=== PATIENT | male | born 1950 | race Caucasian/White ===

== ENCOUNTER 2021-04-28 20:44 | Inpatient (IN) ==
[2021-04-28] MEDS ORDERED: IOPAMIDOL 100 ML BOTTLE IV ONE (20:45)
--- NOTE | 2021-04-28 21:03 | Emergency Department Note ---
HPI General Chief complaint: Abdominal Pain Stated complaint: Abd Pain Time Seen by Provider: 04/28/21 21:03 Source: patient Mode of arrival: ambulatory Limitations: no limitations History of Present Illness HPI Narrative: 70-year-old male with past medical history of hypertension, BPH, and pulmonary sarcoidosis presenting with abdominal pain. Patient states yesterday he developed right flank pain and was evaluated at an emergency department in [facility]. He had a CT scan of his abdomen which reportedly showed kidney stones and possible urinary infection. He was given a dose of IV Levaquin and discharged on Levaquin. He comes in today because he is now having right lower quadrant abdominal pain that does not radiate. No nausea, vomiting, or diarrhea. Denies any hematuria. No prior abdominal surgeries. Patient self caths secondary to his history of BPH. His urologist is Dr. Kramer. No fever or chills. Related Data Home Medications Medication Instructions Recorded Confirmed allopurinol 300 mg tablet 300 mg PO QDAY 09/24/16 04/04/18 indapamide 2.5 mg tablet 2.5 mg PO QAM 09/24/16 04/04/18 potassium citrate 10 mEq (1,080 10 meq PO QDAY tab 09/24/16 04/04/18 mg) tablet,extended release tamsulosin 0.4 mg capsule (Flomax) 0.8 mg PO QDAY cap 09/24/16 04/04/18 aspirin 81 mg tablet,delayed 81 mg PO QDAY 04/04/18 04/04/18 release (Adult Low Dose Aspirin) bethanechol chloride 10 mg tablet tab PO 04/29/21 Allergies Allergy/AdvReac Type Severity Reaction Status Date / Time codeine AdvReac Intermediate sleepiness Verified 04/29/21 00:30 Review of Systems ROS ROS Narrative: Narrative: Constitutional: Denies fever or chills ENT ED: Denies throat pain Cardiovascular: Denies chest pain or palpitations Respiratory: Denies shortness of breath or cough Gastrointestinal: Reports abdominal pain; Denies nausea, vomiting, diarrhea or melena Genitourinary: Denies hematuria Musculoskeletal: Denies back pain or joint swelling Integumentary: Denies rash Neurological: Denies headache Psychiatric: Denies anxiety Endocrine: Denies fatigue Hematological/Lymphatic: Denies easy bleeding or easy bruising [facility] Narrative Patient History Narrative: Narrative: Medical/Surgical/Family History All Active Problems (Updated 04/29/21 @ 00:13 by Ryley White MD) Diverticulitis of colon with perforation (Acute) 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) Elevated blood pressure reading without diagnosis of hypertension (Chronic) Hematuria (Chronic) Hypertension (Chronic) Acute bronchitis (Chronic) Incomplete bladder emptying (Chronic) BPH NOS w/o ur obs/LUTS (Chronic) Nephrolithiasis (Chronic) Oral soft tissue disease (Chronic) Neoplasm of uncertain behavior of skin (Chronic) Shoulder joint pain (Chronic) Urinary calculi (Chronic) BPH w urinary obs/LUTS (Chronic) Medical History (Updated 04/29/21 @ 00:13 by Ryley White MD) Acute bronchitis BPH NOS w/o ur obs/LUTS BPH w urinary obs/LUTS Elevated blood pressure reading without diagnosis of hypertension Hearing loss (03/27/13) Hematuria Hypertension Incomplete bladder emptying Mediastinal adenopathy asymptomatic Neoplasm of uncertain behavior of skin Nephrolithiasis Non-caseating granuloma Oral soft tissue disease Pulmonary sarcoidosis Shoulder joint pain Urinary calculi Surgical History History of colonoscopy (02/23/11) Family History Father Glaucoma Social History Smoking Status: Never smoker Alcohol Intake Frequency: holiday/special occasion only Exam Narrative Narrative: Narrative: General Limitations: no limitations General appearance: Present alert and in no apparent distress Head Head: Present atraumatic and normocephalic Eye Eye: Present normal appearance and EOMI; Absent scleral icterus or conjunctival injection ENT ENT: Present mucous membranes moist Neck Neck: Present normal inspection, full ROM and trachea midline Chest Chest: Present symmetric chest wall rise Respiratory Respiratory: Present normal lung sounds bilaterally; Absent respiratory distress, wheezes, stridor, accessory muscle use or prolonged expiratory phase Cardiovascular Cardiovascular: Present regular rate and normal rhythm; Absent systolic murmur or diastolic murmur Adbominal Abdominal: Present soft and tenderness (Right lower quadrant tenderness to palpation); Absent distention, guarding, rebound, rigidity or organomegaly Extremities Extremities: Present normal inspection; Absent pretibial edema Back Back: Present normal inspection; Absent CVA tenderness (R), CVA tenderness (L) or spinous process tenderness Neurological Neurological: Present alert and oriented X3; Absent motor sensory deficit Psychiatric Psychiatric: Present normal affect and normal mood Skin Skin: Present warm (WNL) and dry Course Vital Signs Vital signs: Vital Signs Temperature 98.1 F 04/28/21 20:44 Pulse Rate 90 04/28/21 20:44 Respiratory Rate 16 04/28/21 20:44 Blood Pressure 138/70 04/28/21 20:44 Pulse Oximetry (%) 96 04/28/21 20:44 Temperature 102.6 F H 04/28/21 22:40 Pulse Rate 85 04/29/21 00:45 Respiratory Rate 16 04/28/21 20:44 Blood Pressure 104/66 04/29/21 00:45 Pulse Oximetry (%) 88 L 04/29/21 00:45 MDM MDM Narrative Medical decision making narrative: 70-year-old male presenting with abdominal pain. Vital signs are stable. He was initially given 15 mg of IV Toradol and a normal saline bolus. Patient did develop a fever to 102F in the ED. Labs are notable for hypokalemia to 2.8. 20 mEq of IV potassium chloride ordered. He also has a mild leukocytosis to 12.4. Lactate is normal. UA with no signs of infection. CT abdomen obtained which shows sigmoid diverticulitis with bowel perforation and moderate free air in the abdomen. Abdomen is not peritonitic on exam. Blood cultures obtained and 4.5 g Zosyn IV ordered. Dr. Mcclure of surgery was consulted and he evaluated the patient in the ED. Will admit for antibiotics and further monitoring. Patient started on maintenance IV fluids. Dr. Mcclure will admit. Lab Data Lab results reviewed: Yes I reviewed the patient's lab results. Result diagrams: 04/28/21 20:50 04/28/21 21:28 Labs: Lab Results 04/28/21 04/28/21 04/28/21 Range/Units 20:50 21:28 21:28 WBC 12.4 H (4.5-11.0) K/mcL RBC 4.39 L (4.63-6.08) M/mcL Hgb 16.0 (13.7-17.5) g/dL Hct 45.1 (40.1-51.0) % MCV 102.7 H (80.0-100.0) fL MCH 36.4 H (26.0-34.0) pg MCHC 35.5 (31.0-36.0) g/dL RDW 12.7 (11.5-14.5) % Plt Count 142 (140-440) K/mcL MPV 10.8 H (7.4-10.4) fL Neut % (Auto) 84.6 H (38.0-78.0) % Lymph % (Auto) 4.7 L (15.5-49.0) % Miller % (Auto) 10.3 (1.0-12.0) % Eos % (Auto) 0.2 (0.0-7.0) % Baso % (Auto) 0.2 (0.0-2.0) % Lymph # (Auto) 0.59 L (1.50-4.80) K/mcL Miller # (Auto) 1.28 H (0.10-0.90) K/mcL Eos # (Auto) 0.02 (0.00-0.70) K/mcL Baso # (Auto) 0.03 (0.00-0.30) K/mcL Absolute Neutrophils 10.52 H (1.80-8.00) K/mcL VBG Lactic Acid 1.9 (0.5-2.0) mmol/L Sodium 131 L (133-145) mmol/L Potassium 2.8 L* (3.3-5.1) mmol/L Chloride 91 L (96-108) mmol/L Carbon Dioxide 28 (22-30) mmol/L Anion Gap 12.0 (8.0-16.0) BUN 19 (8-23) mg/dL Creatinine 1.0 (0.7-1.2) mg/dL POC Creatinine 1.2 (0.6-1.2) mg/dL GFR Calculation 74 Glucose 103 (70-105) mg/dL Calcium 9.1 (8.6-10.4) mg/dL Total Bilirubin 1.4 H (0.1-1.0) mg/dL AST 18 (<40) U/L ALT 18 (<40) U/L Alkaline Phosphatase 85 (39-117) U/L Total Protein 8.1 (5.9-8.4) gm/dL Albumin 4.1 (3.2-5.2) gm/dL Globulin 4.0 H (2.2-3.7) gm/dL Albumin/Globulin Ratio 1.0 (1.0-2.3) Urine Color Urine Appearance (Clear) Urine pH (5.0-9.0) Ur Specific Gary (1.000-1.035) Urine Protein (Negative) mg/dL Urine Glucose (UA) (Negative) mg/dL Urine Ketones (Negative) mg/dL Urine Occult Blood (Negative) belkis/mcL Urine Nitrate (Negative) Urine Bilirubin (Negative) mg/dL Urine Urobilinogen mg/dL Ur Leukocyte Esterase (Negative) /uL Urine RBC (0-3) /hpf Urine WBC (0-4) /hpf Ur Squamous Epith Cells (0-4) /hpf Urine Bacteria (0) /hpf Urine Mucus (None) /hpf Ur Culture Indicated? 04/28/21 Range/Units 21:34 WBC (4.5-11.0) K/mcL RBC (4.63-6.08) M/mcL Hgb (13.7-17.5) g/dL Hct (40.1-51.0) % MCV (80.0-100.0) fL MCH (26.0-34.0) pg MCHC (31.0-36.0) g/dL RDW (11.5-14.5) % Plt Count (140-440) K/mcL MPV (7.4-10.4) fL Neut % (Auto) (38.0-78.0) % Lymph % (Auto) (15.5-49.0) % Miller % (Auto) (1.0-12.0) % Eos % (Auto) (0.0-7.0) % Baso % (Auto) (0.0-2.0) % Lymph # (Auto) (1.50-4.80) K/mcL Miller # (Auto) (0.10-0.90) K/mcL Eos # (Auto) (0.00-0.70) K/mcL Baso # (Auto) (0.00-0.30) K/mcL Absolute Neutrophils (1.80-8.00) K/mcL VBG Lactic Acid (0.5-2.0) mmol/L Sodium (133-145) mmol/L Potassium (3.3-5.1) mmol/L Chloride (96-108) mmol/L Carbon Dioxide (22-30) mmol/L Anion Gap (8.0-16.0) BUN (8-23) mg/dL Creatinine (0.7-1.2) mg/dL POC Creatinine (0.6-1.2) mg/dL GFR Calculation Glucose (70-105) mg/dL Calcium (8.6-10.4) mg/dL Total Bilirubin (0.1-1.0) mg/dL AST (<40) U/L ALT (<40) U/L Alkaline Phosphatase (39-117) U/L Total Protein (5.9-8.4) gm/dL Albumin (3.2-5.2) gm/dL Globulin (2.2-3.7) gm/dL Albumin/Globulin Ratio (1.0-2.3) Urine Color Yellow Urine Appearance Clear (Clear) Urine pH 5.5 (5.0-9.0) Ur Specific Gary >= 1.030 (1.000-1.035) Urine Protein 30 mg/dl A (Negative) mg/dL Urine Glucose (UA) Negative (Negative) mg/dL Urine Ketones Negative (Negative) mg/dL Urine Occult Blood Trace-intact A (Negative) belkis/mcL Urine Nitrate Negative (Negative) Urine Bilirubin Negative (Negative) mg/dL Urine Urobilinogen Normal mg/dL Ur Leukocyte Esterase Negative (Negative) /uL Urine RBC 2 (0-3) /hpf Urine WBC 20 H (0-4) /hpf Ur Squamous Epith Cells < 1 (0-4) /hpf Urine Bacteria None (0) /hpf Urine Mucus Few A (None) /hpf Ur Culture Indicated? yes ED POC Tests ED POC Tests: JUAN - SARS Antigen Negative Radiology Data Radiology results reviewed: Yes I reviewed the patient's radiology results. Radiology results narrative: CT abdomen pelvis with contrast: Sigmoid diverticulitis with bowel perforation. Moderate to large volume of free air within the abdomen. No abscess or bowel obstruction. Bilateral nephrolithiasis noted, per outside radiology inter pretation. Discharge Plan Patient/Caregiver Discharge Instructions Pt seen by [employer]AL[employer] TECHNICIAN/PA only: No Clinical Impression: Diverticulitis of colon with perforation Patient Disposition: Xfer As Inpt ([facility]) Condition: Fair Follow up with: Purnima Lopes MD [Primary Care Provider] - Prescriptions: No Action allopurinol 300 mg tablet 300 mg PO QDAY 0RF tamsulosin [Flomax] 0.4 mg capsule,extended release 24hr 0.8 mg PO QDAY 0RF indapamide 2.5 mg tablet 2.5 mg PO QAM 0RF potassium citrate 10 mEq (1,080 mg) tablet extended release 10 meq PO QDAY 0RF aspirin [Adult Low Dose Aspirin] 81 mg tablet,delayed release (DR/EC) 81 mg PO QDAY 0RF bethanechol chloride 10 mg tablet PO 0RF
[2021-04-28 21:42] LABS: POC Creatinine 1.2 mg/dL (0.6-1.2)
[2021-04-28 21:45] LABS: Basophils # (Auto) 0.03 K/mcL (0.00-0.30); Basophils % (Auto) 0.2 % (0.0-2.0); Eosinophils # (Auto) 0.02 K/mcL (0.00-0.70); Eosinophils % (Auto) 0.2 % (0.0-7.0); Hematocrit 45.1 % (40.1-51.0); Lymphocytes # (Auto) 0.59 K/mcL (1.50-4.80); Lymphocytes % (Auto) 4.7 % (15.5-49.0); Mean Cell Volume 102.7 fL (80.0-100.0); Mean Corpuscular HGB Conc 35.5 g/dL (31.0-36.0); Mean Platelet Volume 10.8 fL (7.4-10.4); Monocytes # (Auto) 1.28 K/mcL (0.10-0.90); Monocytes % (Auto) 10.3 % (1.0-12.0); Neutrophils % (Auto) 84.6 % (38.0-78.0); Platelet Count 142 K/mcL (140-440); RBC 4.39 M/mcL (4.63-6.08); Red Cell Distribution Width 12.7 % (11.5-14.5); WBC 12.4 K/mcL (4.5-11.0)
[2021-04-28] MEDS ORDERED: KETOROLAC 30 MG/ML VIAL IV ONE (22:16)
[2021-04-28 22:18] LABS: ALT/SGPT 18 U/L (<40); AST/SGOT 18 U/L (<40); Albumin 4.1 gm/dL (3.2-5.2); Alkaline Phosphatase 85 U/L (39-117); Bilirubin,Total 1.4 mg/dL (0.1-1.0); Blood Urea Nitrogen 19 mg/dL (8-23); Calcium 9.1 mg/dL (8.6-10.4); Carbon Dioxide 28 mmol/L (22-30); Chloride 91 mmol/L (96-108); Glomerular Filtration Rate 74; Glucose 103 mg/dL (70-105)
[2021-04-28] MEDS ORDERED: POTASSIUM PHOSPHATE 20 MEQ in DEXTROSE 5% IN WATER 250 ML IV ONE (22:31)
[2021-04-28 22:36] LABS: Appearance,Urine Clear (Clear); Bilirubin,Urine Negative (Negative); Color,Urine Yellow; Culture Indicated,Urine yes; Glucose,Urine (UA) Negative (Negative); Ketones,Urine Negative (Negative); Leukocyte Esterase,Urine Negative /uL (Negative); Mucus,Urine FEW /hpf; Nitrate,Urine Negative (Negative); PH,Urine 5.5 (5.0-9.0); Specific Gravity,Urine >= 1.030 (1.000-1.035); Urine Blood Trace-intact ery/mcL (Negative); Urine RBC 2 /hpf (0-3); Urine Squamous Epithelial Cell < 1 /hpf (0-4); Urine WBC 20 /hpf (0-4); Urobilinogen,Urine Normal
[2021-04-28] MEDS ORDERED: POTASSIUM CHLORIDE 20 MEQ in DEXTROSE 5% IN WATER 250 ML IV ONE (22:43)
[2021-04-28] MEDS ORDERED: 0.9 % SODIUM CHLORIDE 1,000 ML IV ONE (23:00)
[2021-04-28] MEDS ORDERED: PIPERACILLIN SODIUM/TAZOBACTAM 4.5 GM in DEXTROSE 5% IN WATER 50 ML IV ONE (23:06)
[2021-04-28] MEDS ORDERED: morphine 4 MG/ML VIAL IV ONE (23:28)
[2021-04-28] MEDS ORDERED: 0.9 % SODIUM CHLORIDE 1,000 ML BAG IV SCH (23:30)
[2021-04-29] MEDS ORDERED: metroNIDAZOLE 500 MG/100 ML BAG IV SCH (00:30)
[2021-04-29] MEDS ORDERED: ONDANSETRON 4 MG/2 ML VIAL IV PRN (00:30)
--- NOTE | 2021-04-29 00:58 | General Surgery Consult Note ---
HPI Data of Consult Patient: new to practice Consult date: 04/28/21 Requesting physician: Ryley White Primary Care Provider: Purnima Lopes Consult Narrative Patient Information: Note initiated : 04/29/21 at 12:50 am Service Date, if different from initiated Date: [] Patient: Bernardino Shrestha 70 y/o M admitted on for Abd Pain. Chief Complaint: [RLQ Abdominal Pain] Bernardino is seen in consultation tonight after developing lower abdominal pain earlier today that has remained localized to the RLQ but has intensified. A CT Scan was obtained that demonstrated Acute Sigmoid Diverticulitis with no free fluid and a moderate amount of free air. He had a last Colonoscopy several years ago. He denies any prior abdominal operations but has frequent issues with nephrolithiasis. His Cardiopulmonary health is good and he denies prior CAD, MIs, or stents. He does not use home O2 or a CPAP. He is not on any oral anticoagulants. Chief complaint: RLQ Abdominal Pain Reason for consult: Acute Sigmoid Diverticulitis cc:: CC: Review of Systems All systems: reviewed and no additional remarkable complaints except as stated PFSH PFSH All Active Problems (Updated 04/29/21 @ 00:13 by Ryley White MD) Diverticulitis of colon with perforation (Acute) 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) Elevated blood pressure reading without diagnosis of hypertension (Chronic) Hematuria (Chronic) Hypertension (Chronic) Acute bronchitis (Chronic) Incomplete bladder emptying (Chronic) BPH NOS w/o ur obs/LUTS (Chronic) Nephrolithiasis (Chronic) Oral soft tissue disease (Chronic) Neoplasm of uncertain behavior of skin (Chronic) Shoulder joint pain (Chronic) Urinary calculi (Chronic) BPH w urinary obs/LUTS (Chronic) Medical History (Updated 04/29/21 @ 00:13 by Ryley White MD) Acute bronchitis BPH NOS w/o ur obs/LUTS BPH w urinary obs/LUTS Elevated blood pressure reading without diagnosis of hypertension Hearing loss (03/27/13) Hematuria Hypertension Incomplete bladder emptying Mediastinal adenopathy asymptomatic Neoplasm of uncertain behavior of skin Nephrolithiasis Non-caseating granuloma Oral soft tissue disease Pulmonary sarcoidosis Shoulder joint pain Urinary calculi Surgical History History of colonoscopy (02/23/11) Family History Father Glaucoma Social History (Updated 04/04/18 @ 09:31 by SARAH Coffman) marital status: occupation: [employer] alcohol intake frequency: holiday/special occasion only MEDS/ALLERGIES Home Medications and Allergies Home Medications Medication Instructions Recorded Confirmed Type allopurinol 300 mg tablet 300 mg PO QDAY 09/24/16 04/29/21 History indapamide 2.5 mg tablet 2.5 mg PO QAM 09/24/16 04/29/21 History potassium citrate 10 mEq (1,080 10 meq PO QDAY tab 09/24/16 04/29/21 History mg) tablet,extended release tamsulosin 0.4 mg capsule (Flomax) 0.8 mg PO QDAY cap 09/24/16 04/29/21 History aspirin 81 mg tablet,delayed 81 mg PO QDAY 04/04/18 04/04/18 History release (Adult Low Dose Aspirin) bethanechol chloride 10 mg tablet tab PO 04/29/21 History Allergies Allergy/AdvReac Type Severity Reaction Status Date / Time codeine AdvReac Intermediate sleepiness Verified 04/29/21 00:30 Physical Examination Vital Signs Vital signs: Temp Pulse Resp BP Pulse Ox 102.6 F H 85 16 104/66 88 L 04/28/21 22:40 04/29/21 00:45 04/28/21 20:44 04/29/21 00:45 04/29/21 00:45 General physical appearance General physical exam: well developed and no distress Eyes Eye exam: normal ocular movement; negative icteric Head Head exam IM: Present atraumatic, normal inspection and normocephalic Neck Neck exam: no masses, trachea midline and no lymphadenopathy Cardiovascular Cardiovascular exam IM: Present normal rate and rhythm and RRR Respiratory Respiratory exam: normal respiratory effort Abdomen Abdomen: Present soft (soft and non distended, there is focal tenderness in the mid lower abdomen but non tender and benign elsewhere) Integumentary Integumentary: Present other (normal appearing intact skin ) Neurologic Neurologic: Present other (fully alert and conversant, grossly intact ) Psychiatric Psychiatric: Present oriented to time, oriented to person and oriented to place Results Labs Result diagrams: 04/28/21 20:50 04/28/21 21:28 Labs: Abnormal lab results 04/28/21 04/28/21 04/28/21 Range/Units 20:50 21:28 21:34 WBC 12.4 H (4.5-11.0) K/mcL RBC 4.39 L (4.63-6.08) M/mcL MCV 102.7 H (80.0-100.0) fL MCH 36.4 H (26.0-34.0) pg MPV 10.8 H (7.4-10.4) fL Neut % (Auto) 84.6 H (38.0-78.0) % Lymph % (Auto) 4.7 L (15.5-49.0) % Lymph # (Auto) 0.59 L (1.50-4.80) K/mcL Russell # (Auto) 1.28 H (0.10-0.90) K/mcL Absolute Neutrophils 10.52 H (1.80-8.00) K/mcL Sodium 131 L (133-145) mmol/L Potassium 2.8 L* (3.3-5.1) mmol/L Chloride 91 L (96-108) mmol/L Total Bilirubin 1.4 H (0.1-1.0) mg/dL Globulin 4.0 H (2.2-3.7) gm/dL Urine Protein 30 mg/dl A (Negative) mg/dL Urine Occult Blood Trace-intact A (Negative) belkis/mcL Urine WBC 20 H (0-4) /hpf Urine Mucus Few A (None) /hpf Diabetes panel 04/28/21 Range/Units 21:28 Sodium 131 L (133-145) mmol/L Potassium 2.8 L* (3.3-5.1) mmol/L Chloride 91 L (96-108) mmol/L Carbon Dioxide 28 (22-30) mmol/L BUN 19 (8-23) mg/dL Creatinine 1.0 (0.7-1.2) mg/dL Glucose 103 (70-105) mg/dL Calcium 9.1 (8.6-10.4) mg/dL AST 18 (<40) U/L ALT 18 (<40) U/L Alkaline Phosphatase 85 (39-117) U/L Total Protein 8.1 (5.9-8.4) gm/dL Albumin 4.1 (3.2-5.2) gm/dL Calcium panel 04/28/21 Range/Units 21:28 Calcium 9.1 (8.6-10.4) mg/dL Albumin 4.1 (3.2-5.2) gm/dL Pituitary panel 04/28/21 Range/Units 21:28 Sodium 131 L (133-145) mmol/L Potassium 2.8 L* (3.3-5.1) mmol/L Chloride 91 L (96-108) mmol/L Carbon Dioxide 28 (22-30) mmol/L BUN 19 (8-23) mg/dL Creatinine 1.0 (0.7-1.2) mg/dL Glucose 103 (70-105) mg/dL Calcium 9.1 (8.6-10.4) mg/dL Adrenal panel 04/28/21 Range/Units 21:28 Sodium 131 L (133-145) mmol/L Potassium 2.8 L* (3.3-5.1) mmol/L Chloride 91 L (96-108) mmol/L Carbon Dioxide 28 (22-30) mmol/L BUN 19 (8-23) mg/dL Creatinine 1.0 (0.7-1.2) mg/dL Glucose 103 (70-105) mg/dL Calcium 9.1 (8.6-10.4) mg/dL Total Bilirubin 1.4 H (0.1-1.0) mg/dL AST 18 (<40) U/L ALT 18 (<40) U/L Alkaline Phosphatase 85 (39-117) U/L Total Protein 8.1 (5.9-8.4) gm/dL Albumin 4.1 (3.2-5.2) gm/dL All other labs normal. A/P Narrative A/P Narrative: Acute Sigmoid Diverticulitis Despite the free air, he has no evidence of diffuse peritoneal findings and is well localized on exam in a location that corresponds well with findings on CT Options and issues are discussed at length with he and his . He seems a reasonable candidate at this point for a non operative approach given how benign and well localized he appears. Issues surrounding potential need for emergent operative intervention were reviewed and discussed as well including the almost certain need for a Diverting Colostomy in the setting of emergent intervention. We will admit for IV ABs, bowel rest, IVF, pain control and close observational mgmt. They have a good understanding of the plan and are in agreement Time Spent With Patient Time: Total time spent is greater than 50% in coordination of care (as documented) at patient's floor/unit and/or counseling patient:
[2021-04-29] MEDS: DEXTROSE 5%-LR 1,000 ML IV SCH ×4 (01:56→14:48)
[2021-04-29] MEDS: HYDROmorphone 0.5 MG/0.5 ML SYRINGE IV PRN ×9 (02:42→23:33)
[2021-04-29] MEDS: CIPROFLOXACIN 400 MG/200 ML BAG IV SCH ×2 (02:45→12:15)
[2021-04-29] MEDS: 0.9 % SODIUM CHLORIDE 10 ML SYRINGE IV SCH ×3 (04:05→20:18)
--- NOTE | 2021-04-29 05:01 | Cat Scan Report ---
CLINICAL INFORMATION: Right lower quadrant pain and fever COMPARISON: Abdomen and pelvic CT 01/29/2021 TECHNIQUE: Following enteric contrast, 80 cc of Isovue-370 were injected intravenously, and 60 seconds later, 0.625 mm helical slices were obtained from the mid heart through the subtrochanteric regions. Following reconstruction, 2.5 mm sagittal, coronal and axial reformatted images were processed and reviewed at bone, lung and soft tissue windows. Five minutes later, 0.625 mm helical slices were obtained from the mid heart through the kidneys and viewed at soft tissue windows.The exam was performed using radiation dose optimization techniques including, but not limited to, automated exposure control, adjustment of the mA and/or kV according to patient size and use of iterative reconstruction technique. FINDINGS: The lung bases show moderate subsegmental atelectasis. 7 mm pleural-based nodule in the anterior basilar segment right lower lobe adjacent to the major fissure and 8 mm well-defined nodule in the right middle lobe adjacent to the diaphragmatic pleura are unchanged. They should represent benign subpulmonic lymph nodes.. No effusions. The visualized heart is grossly normal. Abdominal images again show multiple small stones within the gallbladder. The gallbladder and bile ducts are, otherwise, normal. CBD is 5 mm. The liver, both adrenal glands, spleen, pancreas and aorta, including aortic branches, are normal in size, configuration and attenuation without focal lesion. Portable small nonobstructing calculi within the calyces of both kidneys which are unchanged. These range up to 5 mm in the mid left renal calyx. No obstructing stone or hydronephrosis. There is no adenopathy Pelvic images show 5-6 small stones layering dependently in the posterior urinary bladder ranging up to 6 mm. Prostate is mildly enlarged, but stable. Moderate diverticulitis has developed in the mid sigmoid colon. In this region, there is bowel wall thickening, inflamed diverticula and phlegmon in the perisigmoid fat. Moderate free air is seen in the adjacent mesenteric cavity, the epigastrium and perihepatic regions. The remaining colon, appendix region, small bowel and stomach are normal. Bone windows show right hip prosthesis which is anatomically aligned without loosening or infection. No focal osseous lesion. IMPRESSION: 1. Moderate diverticulitis of the mid sigmoid colon. Moderate free intraperitoneal air is compatible with colonic perforation 2. Stable cholelithiasis. Gallbladder and bile ducts are, otherwise, normal. 3. Multiple small nonobstructing stones in the calyces of both kidneys ranging up to 5 mm mid calyx in the left kidney-unchanged. 4. Small stones layering dependently within the urinary bladder-unchanged Interpreted and Authenticated by: Sudarshan Portillo 04/29/21
[2021-04-29 08:45] LABS: Basophils # (Auto) 0.01 K/mcL (0.00-0.30); Basophils % (Auto) 0.1 % (0.0-2.0); Eosinophils # (Auto) 0.03 K/mcL (0.00-0.70); Eosinophils % (Auto) 0.3 % (0.0-7.0); Hematocrit 40.8 % (40.1-51.0); Hemoglobin 14.5 g/dL (13.7-17.5); Lymphocytes # (Auto) 0.37 K/mcL (1.50-4.80); Lymphocytes % (Auto) 3.6 % (15.5-49.0); Mean Cell Volume 103.6 fL (80.0-100.0); Mean Corpuscular HGB Conc 35.5 g/dL (31.0-36.0); Mean Platelet Volume 10.3 fL (7.4-10.4); Monocytes # (Auto) 0.74 K/mcL (0.10-0.90); Monocytes % (Auto) 7.3 % (1.0-12.0); Neutrophils % (Auto) 88.7 % (38.0-78.0); Platelet Count 126 K/mcL (140-440); RBC 3.94 M/mcL (4.63-6.08); Red Cell Distribution Width 12.8 % (11.5-14.5); WBC 10.2 K/mcL (4.5-11.0)
[2021-04-29 08:55] LABS: Blood Urea Nitrogen 17 mg/dL (8-23); Calcium 8.2 mg/dL (8.6-10.4); Carbon Dioxide 29 mmol/L (22-30); Chloride 92 mmol/L (96-108); Glomerular Filtration Rate 66; Glucose 128 mg/dL (70-105)
[2021-04-29] MEDS: MEROPENEM 0.5 GM in 0.9 % SODIUM CHLORIDE 50 ML IV SCH ×3 (09:00→18:30)
[2021-04-29] MEDS: DOCUSATE SODIUM 100 MG CAPSULE PO SCH ×2 (09:01→20:16)
--- NOTE | 2021-04-29 12:40 | General Surgery Progress Note ---
SUBJECTIVE Subjective Patient information: Note initiated : 04/29/21 at 8:34 pm Service Date, if different from initiated Date: [] Patient: Bernardino Shrestha 70 y/o M admitted on 04/29/21 for Abd Pain. Chief Complaint: [Acute Sigmoid Diverticulitis] Feels a bit better this am. Still has localized only pain and tenderness. Constitutional Vitals: Vital Signs Temp Pulse Resp BP Pulse Ox 99.1 F H 86 20 111/68 91 04/29/21 08:00 04/29/21 08:00 04/29/21 08:00 04/29/21 08:00 04/29/21 08:00 Period Temp Pulse Resp BP Sys/Jones Pulse Ox Last 24 Hr 98.1 F-102.6 F 78-92 - 91-138/56-77 86-96 Intake and Output 04/28/21 04/29/21 04/29/21 21:59 05:59 13:59 Intake Total 1576 973 Output Total 325 350 Balance 1251 623 Weight 200 lb 201 lb 1.6 oz Intake & Output: Intake & Output 04/28/21 04/29/21 04/29/21 21:59 05:59 13:59 Intake Total 1576 973 Output Total 325 350 Balance 1251 623 Weight 200 lb 201 lb 1.6 oz Intake: IV 1576 973 Sodium Chloride 0.9% 1,000 ml @ 958 42 Wide Open IV BOLUS ONE Rx#: [id number] Dextrose 5%-Lactated Ringers 1, 119 881 000 ml @ 125 mls/hr IV .Q8H [facility] Rx#:[id number] Merrem 0.5 gm In Sodium 50 Chloride 0.9% 50 ml @ 100 mls/ hr IV Q6H [facility] Rx#:[id number] Zosyn 4.5 gm In Dextrose 5% in 50 Water 50 ml @ 100 mls/hr IV ONCE ONE Rx#:[id number] Potassium Chloride 20 Meq In 249 0 Dextrose 5% in Water 250 ml @ 130 mls/hr IV ONCE ONE Rx#: [id number] Oral 0 Output: Urine Catheter Amount 325 350 Straight 350 Other: Urine Appearance Clear Straight Clear Urine Color Dark Yellow Straight Dark Yellow Urine Odor Normal General appearance: no acute distress Head Head exam: Present atraumatic, normal inspection and normocephalic Respiratory Respiratory exam: Present normal respiratory exam Cardiovascular Cardiovascular exam: Present normal rate and rhythm and RRR GI/Abdominal Additional comments: localized tenderness focally in the lower midline abdomen, remainder of abdominal exam is soft and benign, non tender Extremities Exam Additional comments: well perfused Neurological Exam Neurological exam: Present oriented X3 Additional comments: fully awake and conversant Psychiatric Psychiatric exam: Present normal affect A/P Assessment and plan (1) Sigmoid diverticulitis: Assessment and plan: Acute Sigmoid Diverticulitis Continues to have no evidence of generalized peritonitis or systemic toxicity Feels improved overall - Flagyl is not available, so will transition to Meropenem as an alternative Clear sips ok, ambulate and OOB as tolerated, re check labs in the AM Status: Acute Time Spent With Patient Time: Total time spent is greater than 50% in coordination of care (as documented) at patient's floor/unit and/or counseling patient:
[2021-04-29] MEDS ORDERED: POTASSIUM CHLORIDE 20 MEQ TABLET PO ONE (19:13)
[2021-04-30] MEDS: MEROPENEM 0.5 GM in 0.9 % SODIUM CHLORIDE 50 ML IV SCH ×4 (00:05→17:30)
[2021-04-30] MEDS: CIPROFLOXACIN 400 MG/200 ML BAG IV SCH ×4 (00:45→23:25)
[2021-04-30] MEDS: HYDROmorphone 0.5 MG/0.5 ML SYRINGE IV PRN ×5 (02:07→14:41)
[2021-04-30] MEDS: DEXTROSE 5%-LR 1,000 ML IV SCH ×3 (02:12→16:31)
[2021-04-30] MEDS: 0.9 % SODIUM CHLORIDE 10 ML SYRINGE IV SCH ×3 (06:08→22:57)
[2021-04-30 06:39] LABS: Hematocrit 37.9 % (40.1-51.0); Hemoglobin 13.5 g/dL (13.7-17.5); Mean Cell Volume 101.3 fL (80.0-100.0); Mean Corpuscular HGB Conc 35.6 g/dL (31.0-36.0); Mean Platelet Volume 10.9 fL (7.4-10.4); Platelet Count 132 K/mcL (140-440); RBC 3.74 M/mcL (4.63-6.08); Red Cell Distribution Width 12.3 % (11.5-14.5); WBC 9.4 K/mcL (4.5-11.0)
[2021-04-30 07:05] LABS: Blood Urea Nitrogen 13 mg/dL (8-23); Calcium 8.1 mg/dL (8.6-10.4); Carbon Dioxide 29 mmol/L (22-30); Chloride 92 mmol/L (96-108); Glomerular Filtration Rate 89; Glucose 131 mg/dL (70-105)
[2021-04-30] MEDS ORDERED: POTASSIUM CHLORIDE 20 MEQ PACKET PO ONE (08:11)
[2021-04-30] MEDS: ALLOPURINOL 300 MG TABLET PO SCH (09:25)
[2021-04-30] MEDS: DOCUSATE SODIUM 100 MG CAPSULE PO SCH ×2 (09:25→23:25)
[2021-04-30] MEDS: TAMSULOSIN 0.4 MG CAPSULE PO SCH (09:26)
[2021-04-30] MEDS ORDERED: PNEUMOCOCCAL 23-VAL P-SAC VAC 0.5 ML SYRINGE IM ONE (10:00)
[2021-04-30] MEDS ORDERED: FLU VACC QS2021-22(6MOS UP)/PF 60 MCG/0.5 ML SYRINGE IM ONE (10:00)
--- NOTE | 2021-04-30 11:32 | General Surgery Progress Note ---
SUBJECTIVE Subjective Patient information: Note initiated : 04/30/21 at 11:24 am Service Date, if different from initiated Date: [] Patient: Bernardino Shrestha 70 y/o M admitted on 04/29/21 for Abd Pain. Chief Complaint: [Acute Sigmoid Diverticulitis] Continues to have pain in the general area of the midline lower abdomen. No pain elsewhere. Producing large amounts of urine and vitals have normalized. Constitutional Vitals: Vital Signs Temp Pulse Resp BP Pulse Ox 98.9 F 76 20 107/64 91 04/30/21 07:59 04/30/21 07:59 04/30/21 07:59 04/30/21 07:59 04/30/21 07:59 Period Temp Pulse Resp BP Sys/Jones Pulse Ox Last 24 Hr 98.3 F-98.9 F 76-85 12-24 96-122/57-72 90-92 Intake and Output 04/29/21 04/30/21 04/30/21 21:59 05:59 13:59 Intake Total 100 1390 542 Output Total 350 600 350 Balance -250 790 192 Weight 198 lb 1 oz Intake & Output: Intake & Output 04/29/21 04/30/21 04/30/21 21:59 05:59 13:59 Intake Total 100 1390 542 Output Total 350 600 350 Balance -250 790 192 Weight 198 lb 1 oz Intake: IV 100 1150 542 Dextrose 5%-Lactated Ringers 1, 900 492 000 ml @ 125 mls/hr IV .Q8H ERIK Rx#:[id number] Merrem 0.5 gm In Sodium 100 50 50 Chloride 0.9% 50 ml @ 100 mls/ hr IV Q6H ERIK Rx#:[id number] Oral 240 Output: Urine Catheter Amount 350 600 350 Straight 350 Other: Urine Appearance Clear Straight Clear Urine Color Dark Yellow Straight Light [place] Urine Odor Normal General appearance: no acute distress Exam: looks well, non toxic, fully conversant Head Head exam: Present atraumatic, normal inspection and normocephalic Respiratory Additional comments: normal respiratory effort without distress Cardiovascular Cardiovascular exam: Present RRR GI/Abdominal Additional comments: focal tenderness in the lower abdomen, remainder of belly is soft, non tender, and benign Extremities Exam Additional comments: well perfused A/P Narrative A/P Narrative: HD#3 Acute Sigmoid Diverticulitis Seems to be improving overall although pain persists Continue IV ABs for now and replace K+ Re check labs in the AM and start suppositories Clear sips only for now Time Spent With Patient Time: Total time spent is greater than 50% in coordination of care (as documented) at patient's floor/unit and/or counseling patient:
[2021-04-30] MEDS: oxyCODONE HCL 5 MG TABLET PO PRN ×2 (12:03→18:53)
[2021-04-30] MEDS ORDERED: DEXTROSE 5%-LR 1,000 ML IV SCH (23:28)
[2021-04-30] MEDS ORDERED: DEXTROSE 5%-1/2NS W/40MEQ KCL 1,000 ML IV SCH (23:45)
[2021-05-01] MEDS: MEROPENEM 0.5 GM in 0.9 % SODIUM CHLORIDE 50 ML IV SCH ×5 (00:35→23:59)
[2021-05-01] MEDS: oxyCODONE HCL 5 MG TABLET PO PRN ×3 (01:17→16:07)
[2021-05-01] MEDS ORDERED: POTASSIUM CHLORIDE 20 MEQ/10 ML VIAL IV ONE (01:46)
[2021-05-01] MEDS: HYDROmorphone 0.5 MG/0.5 ML SYRINGE IV PRN (04:58)
[2021-05-01] MEDS: 0.9 % SODIUM CHLORIDE 10 ML SYRINGE IV SCH ×3 (05:29→20:57)
[2021-05-01 07:43] LABS: Basophils # (Auto) 0.02 K/mcL (0.00-0.30); Basophils % (Auto) 0.2 % (0.0-2.0); Eosinophils # (Auto) 0.07 K/mcL (0.00-0.70); Eosinophils % (Auto) 0.7 % (0.0-7.0); Hematocrit 38.6 % (40.1-51.0); Hemoglobin 13.7 g/dL (13.7-17.5); Lymphocytes # (Auto) 0.52 K/mcL (1.50-4.80); Lymphocytes % (Auto) 4.8 % (15.5-49.0); Mean Corpuscular HGB Conc 35.5 g/dL (31.0-36.0); Mean Platelet Volume 10.9 fL (7.4-10.4); Monocytes # (Auto) 0.86 K/mcL (0.10-0.90); Neutrophils % (Auto) 86.3 % (38.0-78.0); Platelet Count 155 K/mcL (140-440); RBC 3.82 M/mcL (4.63-6.08); Red Cell Distribution Width 12.5 % (11.5-14.5); WBC 10.7 K/mcL (4.5-11.0)
[2021-05-01] MEDS: DOCUSATE SODIUM 100 MG CAPSULE PO SCH ×3 (08:25→23:48)
[2021-05-01] MEDS: ALLOPURINOL 300 MG TABLET PO SCH (08:25)
[2021-05-01] MEDS: CIPROFLOXACIN 400 MG/200 ML BAG IV SCH ×2 (08:26→20:55)
[2021-05-01] MEDS: TAMSULOSIN 0.4 MG CAPSULE PO SCH (08:26)
[2021-05-01 08:35] LABS: Blood Urea Nitrogen 12 mg/dL (8-23); Carbon Dioxide 29 mmol/L (22-30); Chloride 92 mmol/L (96-108); Glomerular Filtration Rate 89; Glucose 114 mg/dL (70-105)
[2021-05-01] MEDS ORDERED: POTASSIUM CHLORIDE 20 MEQ TABLET PO ONE ×2 (08:40→17:30)
[2021-05-01] MEDS: BISACODYL 10 MG SUPP.RECT PR SCH (10:32)
--- NOTE | 2021-05-01 11:36 | General Surgery Progress Note ---
SUBJECTIVE Subjective Patient information: Note initiated : 05/01/21 at 11:31 am Service Date, if different from initiated Date: [] Patient: Bernardino Shrestha 70 y/o M admitted on 04/29/21 for Abd Pain. Chief Complaint: [Acute Sigmoid Diverticulitis] Continues to have less pain it seems, not passing any gas though, no fevers or chills overnight Constitutional Vitals: Vital Signs Temp Pulse Resp BP Pulse Ox 97.8 F 74 16 116/75 94 05/01/21 07:42 05/01/21 07:42 05/01/21 07:42 05/01/21 07:42 05/01/21 07:42 Period Temp Pulse Resp BP Sys/Jones Pulse Ox Last 24 Hr 97.3 F-98.9 F 72-80 16-22 107-116/67-75 89-94 Intake and Output 04/30/21 05/01/21 05/01/21 21:59 05:59 13:59 Intake Total 250 1150 250 Output Total 525 900 600 Balance -275 250 -350 Weight 201 lb 9.6 oz Intake & Output: Intake & Output 04/30/21 05/01/21 05/01/21 21:59 05:59 13:59 Intake Total 250 1150 250 Output Total 525 900 600 Balance -275 250 -350 Weight 201 lb 9.6 oz Intake: IV 250 1150 250 Dextrose 5%-Lactated Ringers 1, 900 000 ml @ 125 mls/hr IV .Q8H ERIK Rx#:[id number] Merrem 0.5 gm In Sodium 50 50 50 Chloride 0.9% 50 ml @ 100 mls/ hr IV Q6H ERIK Rx#:[id number] Oral 0 Output: Urine Catheter Amount 525 650 Straight 650 Void Amount 250 600 Other: Urine Appearance Clear Clear Straight Clear Urine Color Dark [place] Dark Yellow Straight Dark Yellow Urine Odor Normal Exam: fully conversant, no distress, non toxic Head Head exam: Present atraumatic and normal inspection Respiratory Additional comments: normal respiratory effort without distress Cardiovascular Cardiovascular exam: Present RRR GI/Abdominal Additional comments: soft but increased distension, non tender, no peritoneal findings A/P Narrative A/P Narrative: Acute Sigmoid Diverticulitis ? Ileus vs SBO - check plain films today Continue IV ABs with bowel rest Although his laboratory studies, vital signs, etc have improved, it remains unclear if he'll resolve without operative intervention Time Spent With Patient Time: Total time spent is greater than 50% in coordination of care (as documented) at patient's floor/unit and/or counseling patient:
--- NOTE | 2021-05-01 13:10 | XRay Report ---
CLINICAL INFORMATION: eval for SBO abdominal pain and distention COMPARISON: None. FINDINGS: The stool gas pattern is unremarkable. There is no free air, soft tissue mass, organomegaly. There are multiple small calcifications overlying the calyces of both kidneys ranging up to 3 mm. There are likely nonobstructing stones. 3 mm calcification in the left true pelvis likely a phlebolith although a left ureteral stone not excluded. IMPRESSION: No evidence of bowel obstruction. Multiple small calcifications overlying the calyces of both kidneys which are likely nonobstructing stones. Potential 3 mm obstructing stone distal left ureter. If the patient has symptoms of obstructing stone disease, consider noncontrast abdomen and pelvic CT Interpreted and Authenticated by: Sudarshan Portillo 05/01/21
[2021-05-01] MEDS: POTASSIUM CHLORIDE 40 MEQ in DEXTROSE 5%-1/2NS 1,000 ML IV SCH (14:43)
[2021-05-01] MEDS: ACETAMINOPHEN 325 MG TABLET PO PRN (16:03)
[2021-05-02] MEDS: POTASSIUM CHLORIDE 40 MEQ in DEXTROSE 5%-1/2NS 1,000 ML IV SCH (04:13)
[2021-05-02] MEDS: ACETAMINOPHEN 325 MG TABLET PO PRN ×2 (04:20→13:00)
[2021-05-02] MEDS: 0.9 % SODIUM CHLORIDE 10 ML SYRINGE IV SCH ×3 (04:24→20:37)
[2021-05-02] MEDS: MEROPENEM 0.5 GM in 0.9 % SODIUM CHLORIDE 50 ML IV SCH ×3 (06:34→18:02)
[2021-05-02 07:49] LABS: Basophils # (Auto) 0.02 K/mcL (0.00-0.30); Basophils % (Auto) 0.2 % (0.0-2.0); Eosinophils # (Auto) 0.12 K/mcL (0.00-0.70); Eosinophils % (Auto) 1.5 % (0.0-7.0); Hematocrit 39.9 % (40.1-51.0); Lymphocytes # (Auto) 0.51 K/mcL (1.50-4.80); Lymphocytes % (Auto) 6.2 % (15.5-49.0); Mean Cell Volume 100.8 fL (80.0-100.0); Mean Corpuscular HGB Conc 35.1 g/dL (31.0-36.0); Mean Platelet Volume 10.5 fL (7.4-10.4); Monocytes % (Auto) 9.8 % (1.0-12.0); Neutrophils % (Auto) 82.3 % (38.0-78.0); Platelet Count 187 K/mcL (140-440); RBC 3.96 M/mcL (4.63-6.08); Red Cell Distribution Width 12.3 % (11.5-14.5); WBC 8.2 K/mcL (4.5-11.0)
[2021-05-02 08:06] LABS: Blood Urea Nitrogen 11 mg/dL (8-23); Calcium 8.1 mg/dL (8.6-10.4); Carbon Dioxide 24 mmol/L (22-30); Chloride 98 mmol/L (96-108); Glomerular Filtration Rate 94; Glucose 124 mg/dL (70-105)
[2021-05-02] MEDS: TAMSULOSIN 0.4 MG CAPSULE PO SCH (09:20)
[2021-05-02] MEDS: DOCUSATE SODIUM 100 MG CAPSULE PO SCH ×2 (09:20→20:37)
[2021-05-02] MEDS: ALLOPURINOL 300 MG TABLET PO SCH (09:20)
[2021-05-02] MEDS: CIPROFLOXACIN 400 MG/200 ML BAG IV SCH ×2 (09:25→20:37)
[2021-05-02] MEDS: BISACODYL 10 MG SUPP.RECT PR SCH (09:30)
--- NOTE | 2021-05-02 09:59 | General Surgery Progress Note ---
SUBJECTIVE Subjective Patient information: Note initiated : 05/02/21 at 9:54 am Service Date, if different from initiated Date: [] Patient: Bernardino Shrestha 70 y/o M admitted on 04/29/21 for Abd Pain. Chief Complaint: [Acute Sigmoid Diverticulitis] Bernardino feels much improved today - now passing large amounts of gas and stool, producing large amounts of urine Constitutional Vitals: Vital Signs Temp Pulse Resp BP Pulse Ox 98.0 F 62 16 134/79 91 05/02/21 07:24 05/02/21 07:24 05/02/21 07:24 05/02/21 07:24 05/02/21 07:24 Period Temp Pulse Resp BP Sys/Jones Pulse Ox Last 24 Hr 97.7 F-99.8 F 62-76 16-20 103-134/69-79 90-93 Intake and Output 05/01/21 05/02/21 05/02/21 21:59 05:59 13:59 Intake Total 1250 1070 50 Output Total 1100 1525 Balance 150 -455 50 Weight 198 lb 5 oz Intake & Output: Intake & Output 05/01/21 05/02/21 05/02/21 21:59 05:59 13:59 Intake Total 1250 1070 50 Output Total 1100 1525 Balance 150 -455 50 Weight 198 lb 5 oz Intake: IV 1250 1070 50 Dextrose 5%-1/2Ns W/40Meq KCl 1 1000 ,000 ml @ 100 mls/hr IV .Q10H ERIK Rx#:[id number] Merrem 0.5 gm In Sodium 50 50 50 Chloride 0.9% 50 ml @ 100 mls/ hr IV Q6H ERIK Rx#:[id number] Potassium Chloride 40 Meq In 1020 Dextrose 5%-1/2Ns IV Solution 1 ,000 ml @ 100 mls/hr IV . [id number] ERIK Rx#:[id number] Oral 0 Output: Urine Catheter Amount 1100 1525 Straight 1100 825 Other: Urine Appearance Straight Clear Clear Urine Color Dark Yellow Straight Dark Yellow Dark Yellow Urine Odor Normal Stool Consistency Normal for Patient # Bowel Movements 1 General appearance: no acute distress Exam: looks well, non toxic, fully conversant Respiratory Additional comments: normal respiratory effort without distress Cardiovascular Cardiovascular exam: Present normal rate and rhythm and RRR GI/Abdominal Additional comments: soft and non tender, non distended, no peritoneal findings Extremities Exam Additional comments: appear well perfused A/P Narrative A/P Narrative: Resolving Acute Sigmoid Diverticulitis Will start clear liquids today Continue IV ABs for now Increase activity as tolerated Time Spent With Patient Time: Total time spent is greater than 50% in coordination of care (as documented) at patient's floor/unit and/or counseling patient:
[2021-05-02] MEDS: DEXTROSE 5%-1/2NS W/20MEQ KCL 1,000 ML IV SCH (10:50)
[2021-05-02] MEDS: oxyCODONE HCL 5 MG TABLET PO PRN (18:46)
[2021-05-03] MEDS: MEROPENEM 0.5 GM in 0.9 % SODIUM CHLORIDE 50 ML IV SCH ×5 (00:09→23:47)
[2021-05-03] MEDS: DEXTROSE 5%-1/2NS W/20MEQ KCL 1,000 ML IV SCH ×4 (00:53→20:02)
[2021-05-03] MEDS: oxyCODONE HCL 5 MG TABLET PO PRN ×2 (03:37→09:21)
[2021-05-03] MEDS: 0.9 % SODIUM CHLORIDE 10 ML SYRINGE IV SCH ×3 (05:56→20:10)
[2021-05-03 06:45] LABS: Basophils # (Auto) 0.02 K/mcL (0.00-0.30); Basophils % (Auto) 0.3 % (0.0-2.0); Eosinophils # (Auto) 0.14 K/mcL (0.00-0.70); Hematocrit 41.3 % (40.1-51.0); Hemoglobin 14.8 g/dL (13.7-17.5); Lymphocytes # (Auto) 0.72 K/mcL (1.50-4.80); Lymphocytes % (Auto) 10.3 % (15.5-49.0); Mean Cell Volume 101.5 fL (80.0-100.0); Mean Corpuscular HGB Conc 35.8 g/dL (31.0-36.0); Monocytes # (Auto) 0.78 K/mcL (0.10-0.90); Monocytes % (Auto) 11.2 % (1.0-12.0); Neutrophils % (Auto) 76.2 % (38.0-78.0); Platelet Count 201 K/mcL (140-440); RBC 4.07 M/mcL (4.63-6.08); Red Cell Distribution Width 12.6 % (11.5-14.5)
[2021-05-03 07:08] LABS: Blood Urea Nitrogen 10 mg/dL (8-23); Calcium 8.1 mg/dL (8.6-10.4); Carbon Dioxide 21 mmol/L (22-30); Chloride 100 mmol/L (96-108); Glomerular Filtration Rate 94; Glucose 114 mg/dL (70-105)
[2021-05-03] MEDS: ALLOPURINOL 300 MG TABLET PO SCH (09:21)
[2021-05-03] MEDS: TAMSULOSIN 0.4 MG CAPSULE PO SCH (09:21)
[2021-05-03] MEDS: CIPROFLOXACIN 400 MG/200 ML BAG IV SCH ×2 (09:22→20:02)
[2021-05-03] MEDS: DOCUSATE SODIUM 100 MG CAPSULE PO SCH ×2 (09:23→20:09)
[2021-05-03] MEDS: BISACODYL 10 MG SUPP.RECT PR SCH (09:23)
--- NOTE | 2021-05-03 13:22 | General Surgery Progress Note ---
SUBJECTIVE Subjective Patient information: Note initiated : 05/03/21 at 1:15 pm Service Date, if different from initiated Date: [] Patient: Bernardino Shrestha 70 y/o M admitted on 04/29/21 for Abd Pain. Chief Complaint: [Acute Sigmoid Diverticulitis] Seen in the [place] ambulating with family. Feels abdominal pain remains localized and is now dramatically reduced. Passing large amounts of gas and some stool. Headache is main complaint at this time. No fevers and tolerating clears well. Constitutional Vitals: Vital Signs Temp Pulse Resp BP Pulse Ox 98.9 F 74 18 117/76 92 05/03/21 12:00 05/03/21 12:00 05/03/21 12:00 05/03/21 12:00 05/03/21 12:00 Period Temp Pulse Resp BP Sys/Jones Pulse Ox Last 24 Hr 97.3 F-98.9 F 63-81 17-18 117-125/73-77 92-93 Intake and Output 05/02/21 05/03/21 05/03/21 21:59 05:59 13:59 Intake Total 460 1610 250 Output Total 600 Balance 460 1610 -350 Weight 200 lb 5 oz Intake & Output: Intake & Output 05/02/21 05/03/21 05/03/21 21:59 05:59 13:59 Intake Total 460 1610 250 Output Total 600 Balance 460 1610 -350 Weight 200 lb 5 oz Intake: IV 100 1250 250 Dextrose 5%-1/2Ns W/20Meq KCl 1 1000 ,000 ml @ 75 mls/hr IV .[id number] EIRK Rx#:[id number] Merrem 0.5 gm In Sodium 100 50 50 Chloride 0.9% 50 ml @ 100 mls/ hr IV Q6H ERIK Rx#:[id number] Oral 360 360 Output: Void Amount 600 Other: Meal Dinner Percent of Meal Consumed 100% Feeding Ability Independent Urine Appearance Clear Urine Color Dark Yellow Exam: Ambulatory in [place] with family, fully conversant and non toxic and appears in no distress Head Head exam: Present atraumatic and normocephalic Eye Eye exam: Present normal appearance Neck Neck exam: Present normal inspection Respiratory Additional comments: normal respiratory effort without distress Extremities Exam Additional comments: well perfused, non edematous A/P Narrative A/P Narrative: Resolving Acute Sigmoid Diverticulitis Continues to look much improved Clears only for another day along with IV ABs Will likely advance diet tomorrow with transition to oral ABs possible in the coming days Time Spent With Patient Time: Total time spent is greater than 50% in coordination of care (as documented) at patient's floor/unit and/or counseling patient:
[2021-05-04] MEDS: DEXTROSE 5%-1/2NS W/20MEQ KCL 1,000 ML IV SCH ×3 (02:32→22:18)
[2021-05-04] MEDS: MEROPENEM 0.5 GM in 0.9 % SODIUM CHLORIDE 50 ML IV SCH ×3 (06:13→17:32)
[2021-05-04] MEDS: 0.9 % SODIUM CHLORIDE 10 ML SYRINGE IV SCH ×3 (06:14→21:08)
[2021-05-04 08:29] LABS: Blood Urea Nitrogen 10 mg/dL (8-23); Calcium 8.5 mg/dL (8.6-10.4); Carbon Dioxide 23 mmol/L (22-30); Chloride 104 mmol/L (96-108); Glomerular Filtration Rate 89; Glucose 106 mg/dL (70-105)
[2021-05-04] MEDS: CIPROFLOXACIN 400 MG/200 ML BAG IV SCH ×2 (10:12→21:07)
[2021-05-04] MEDS: BISACODYL 10 MG SUPP.RECT PR SCH (10:12)
[2021-05-04] MEDS: DOCUSATE SODIUM 100 MG CAPSULE PO SCH ×2 (10:12→21:07)
[2021-05-04] MEDS: ALLOPURINOL 300 MG TABLET PO SCH (10:23)
[2021-05-04] MEDS: TAMSULOSIN 0.4 MG CAPSULE PO SCH (10:23)
--- NOTE | 2021-05-04 10:36 | General Surgery Progress Note ---
SUBJECTIVE Subjective Patient information: Note initiated : 05/04/21 at 10:29 am Service Date, if different from initiated Date: [] Patient: Bernardino Shrestha 70 y/o M admitted on 04/29/21 for Abd Pain. Chief Complaint: [Acute Sigmoid Diverticulitis] Bernardino continues to feel much better this am, doing well with clears and feels essentially back to baseline. Constitutional Vitals: Vital Signs Temp Pulse Resp BP Pulse Ox 97.5 F 75 18 118/74 95 05/04/21 07:22 05/04/21 07:22 05/04/21 07:22 05/04/21 07:22 05/04/21 07:22 Period Temp Pulse Resp BP Sys/Jones Pulse Ox Last 24 Hr 97.2 F-98.9 F 60-75 18-20 105-126/64-77 92-95 Intake and Output 05/03/21 05/04/21 05/04/21 21:59 05:59 13:59 Intake Total 1250 250 50 Output Total 1320 Balance 1250 -1070 50 Weight 197 lb 8 oz Intake & Output: Intake & Output 05/03/21 05/04/21 05/04/21 21:59 05:59 13:59 Intake Total 1250 250 50 Output Total 1320 Balance 1250 -1070 50 Weight 197 lb 8 oz Intake: IV 1250 50 50 Dextrose 5%-1/2Ns W/20Meq KCl 1 1000 ,000 ml @ 75 mls/hr IV .[id number] ERIK Rx#:[id number] Merrem 0.5 gm In Sodium 50 50 50 Chloride 0.9% 50 ml @ 100 mls/ hr IV Q6H ERIK Rx#:[id number] Oral 200 Output: Void Amount 1320 Other: Urine Appearance Clear Urine Color Dark Yellow Exam: fully conversant, non toxic, looks well Head Head exam: Present atraumatic and normocephalic Respiratory Additional comments: normal respiratory effort without distress Cardiovascular Cardiovascular exam: Present normal rate and rhythm and RRR GI/Abdominal Additional comments: belly is soft and minimally tender, non distended Extremities Exam Additional comments: well perfused A/P Narrative A/P Narrative: Resolving Acute Sigmoid Diverticulitis Advance Diet Saline Lock IVF Continue IV ABs for now Time Spent With Patient Time: Total time spent is greater than 50% in coordination of care (as documented) at patient's floor/unit and/or counseling patient:
[2021-05-05] MEDS: MEROPENEM 0.5 GM in 0.9 % SODIUM CHLORIDE 50 ML IV SCH ×2 (00:20→05:18)
[2021-05-05] MEDS: 0.9 % SODIUM CHLORIDE 10 ML SYRINGE IV SCH (05:18)
[2021-05-05] MEDS: DEXTROSE 5%-1/2NS W/20MEQ KCL 1,000 ML IV SCH (06:59)
[2021-05-05] MEDS: TAMSULOSIN 0.4 MG CAPSULE PO SCH (08:16)
[2021-05-05] MEDS: BISACODYL 10 MG SUPP.RECT PR SCH (08:17)
[2021-05-05] MEDS: ALLOPURINOL 300 MG TABLET PO SCH (08:17)
[2021-05-05] MEDS: CIPROFLOXACIN 400 MG/200 ML BAG IV SCH (08:17)
[2021-05-05] MEDS: DOCUSATE SODIUM 100 MG CAPSULE PO SCH (08:17)
--- NOTE | 2021-05-05 09:23 | General Surgery Progress Note ---
SUBJECTIVE Subjective Patient information: Note initiated : 05/05/21 at 8:19 am Service Date, if different from initiated Date: [] Patient: Bernardino Shrestha 70 y/o M admitted on 04/29/21 for Abd Pain. Chief Complaint: [Acute Sigmoid Diverticulitis] Doing well this am and continues to feel essentially back to baseline. Tolerating his diet and having good bowel function. No recurrent pain, fevers or chills. Constitutional Vitals: Vital Signs Temp Pulse Resp BP Pulse Ox 97.3 F 82 14 113/77 96 05/05/21 07:07 05/05/21 07:07 05/05/21 07:07 05/05/21 07:07 05/05/21 07:07 Period Temp Pulse Resp BP Sys/Jones Pulse Ox Last 24 Hr 97 F-98.6 F 66-92 14-20 98-129/66-79 93-96 Intake and Output 05/04/21 05/05/21 05/05/21 21:59 05:59 13:59 Intake Total 1100 860 Output Total 600 1000 Balance 500 -140 Weight 191 lb 11.2 oz Intake & Output: Intake & Output 05/04/21 05/05/21 05/05/21 21:59 05:59 13:59 Intake Total 1100 860 Output Total 600 1000 Balance 500 -140 Weight 191 lb 11.2 oz Intake: IV 1100 620 Dextrose 5%-1/2Ns W/20Meq KCl 1 1000 320 ,000 ml @ 50 mls/hr IV .Q20H ERIK Rx#:[id number] Merrem 0.5 gm In Sodium 100 100 Chloride 0.9% 50 ml @ 100 mls/ hr IV Q6H ERIK Rx#:[id number] Oral 240 Output: Urine Catheter Amount 600 1000 Other: Urine Appearance Clear Clear Straight Clear Urine Color Bright Yellow Bright Yellow Straight Bright Yellow Dark Yellow Stool Size Small Stool Color Brown Stool Consistency Soft # Voids 2 Exam: Looks well, NAD, non toxic Respiratory Additional comments: normal respiratory effort without distress Cardiovascular Cardiovascular exam: Present normal rate and rhythm and RRR GI/Abdominal Additional comments: soft and non distended, minimal residual focal tenderness Extremities Exam Additional comments: well perfused A/P Narrative A/P Narrative: Resolving Acute Sigmoid Diverticulitis Doing Well Home today on oral ABs with clinic follow up in the next 1-2 weeks Importance of seeking attention right away for any recurrence or worsening of symptoms Time Spent With Patient Time: Total time spent is greater than 50% in coordination of care (as documented) at patient's floor/unit and/or counseling patient:
--- NOTE | 2021-05-06 13:48 | Discharge Summary ---
DATE OF ADMISSION: 04/29/2021 DATE OF DISCHARGE: 05/05/2021 ADMITTING PHYSICIAN: Mukesh Mcclure M.D. ADMITTING DIAGNOSIS: Acute sigmoid diverticulitis. DISCHARGE DIAGNOSIS: Acute sigmoid diverticulitis. INDICATIONS FOR ADMISSION AND HOSPITAL COURSE: The patient is a 70-year-old male who presented to the emergency room on 04/29/2021 with intensifying pain, principally centered down in the right focal lower mid abdomen. CT scan demonstrated findings consistent with acute sigmoid diverticulitis. His sigmoid colon was draped across the midline over onto the right side and this seemed to be the focus of his pain and discomfort. CT scan demonstrated evidence of a moderate amount of free air as well as the diverticulitis. There was no evidence of any free fluid or peritoneal findings beyond that on imaging, and he had no pain in the remainder of his abdominal exam and was well-localized to the area of the sigmoid colon only. He was nontoxic and based on that we recommended an attempt at conservative management with IV antibiotics and observational management and bowel rest given the fact that surgery would likely leave him with a colostomy, at least on a temporary basis and necessitate a followup surgery. Issues were discussed with he and his at length at the time of admission, and they were comfortable with that plan. Patient was admitted on 04/29/2021, placed on IV meropenem as well as IV ciprofloxacin. He had pain and discomfort for several days but in the ensuing days after that improved markedly with essential resolution of his pain and discomfort, return of bowel function, and normalization of mental status and other issues. On hospital day four, he was started on clear liquids and this was advanced over the next 24 to 48 hours to full liquids and ultimately a regular diet. By 05/05/2021, he was felt well enough for discharge. At that time, he was afebrile and had been for many days. His exam was essentially normal. He had really no tenderness in the abdomen and felt that he was back to baseline. IN-HOSPITAL COMPLICATIONS: None. IN-HOSPITAL PROCEDURES: None. PLAN FOLLOWUP AND DISPOSITION: Patient will be discharged on oral antibiotics and follow up with Dr. Mcclure in Clinic in 1 to 2 weeks with instructions to return or seek medical attention immediately if any recurrence of his symptoms should develop between now and then. BW:radha Job ID: [id number] Doc ID: [id number] Mukesh Mcclure M.D.
== END 2021-05-05 11:20 | disposition home or self-care (01) | DRG 392 ==
LOC: ED 20:44 → MEDSUR 04-29 01:06
PROVIDERS: ADMIT Surgery Surgical Critical Care; ATTEND Surgery Surgical Critical Care

== ENCOUNTER 2021-08-18 07:46 | Inpatient (IN) ==
[2021-08-18] MEDS ORDERED: IOPAMIDOL 100 ML BOTTLE IV ONE (07:47)
--- NOTE | 2021-08-18 08:03 | Emergency Department Note ---
HPI General Chief complaint: Fever Stated complaint: fever, disoriented, abd pain Time Seen by Provider: 08/18/21 08:03 Source: patient Mode of arrival: ambulatory Limitations: no limitations History of Present Illness HPI Narrative: 71-year-old male with past medical history of BPH who self caths at home presenting with fever. Patient was seen in the emergency department 6 days ago for suprapubic pain and spasm. He was diagnosed with UTI and discharged on Bactrim. Patient continued to have lower abdominal pain and his urine culture grew coag negative staph which was susceptible to Bactrim. Patient continued to have pain and spasm so he was switched from Bactrim to Macrobid as an outpatient. He was then seen in the emergency department last night for persistent fever, as high as 101.8F. He was evaluated with repeat urinalysis which appeared stable, labs, lactic acid, blood cultures, and chest x-ray. Lactic acid was normal at 1.7 and lab work was unremarkable. Chest x-ray showed no acute findings. Rapid COVID test was negative. Patient felt improved and he was discharged home. He returns this morning as he is still having fever at home as high as 101F. Patient denies abdominal pain at this time. also notes that he seemed a little "off" this morning. Of note patient was evaluated in the emergency department in March 2021 and found to have diverticulitis with perforation. He was admitted, conservatively managed with antibiotics, and discharged. Patient and his spouse are here as they are concern for recurrent diverticulitis. No chest pain, shortness of breath, cough, vomiting, or blood in the stool. He has been self cathing normally and has had normal urine output. Related Data Home Medications Medication Instructions Recorded Confirmed allopurinol 300 mg tablet 300 mg PO QDAY 09/24/16 08/18/21 indapamide 2.5 mg tablet 2.5 mg PO QAM 09/24/16 08/18/21 potassium citrate 10 mEq (1,080 10 meq PO QDAY tab 09/24/16 08/18/21 mg) tablet,extended release tamsulosin 0.4 mg capsule (Flomax) 0.8 mg PO QDAY cap 09/24/16 08/18/21 potassium chloride 10 meq PO QDAY 05/21/21 08/18/21 Previous Rx's Medication Instructions Recorded oxybutynin chloride 5 mg tablet 5 mg PO BID PRN #20 tab 08/12/21 Allergies Allergy/AdvReac Type Severity Reaction Status Date / Time No Known Drug Allergies Allergy Verified 08/18/21 07:49 Review of Systems ROS ROS Narrative: Narrative: Constitutional: Reports fever ENT ED: Denies throat pain Cardiovascular: Denies chest pain Respiratory: Denies shortness of breath or cough Gastrointestinal: Reports as per HPI Genitourinary: Denies hematuria Musculoskeletal: Denies back pain Integumentary: Denies rash Neurological: Denies headache, weakness or dizziness Psychiatric: Denies anxiety Endocrine: Denies fatigue Hematological/Lymphatic: Denies easy bruising PFSH Narrative Patient History Narrative: Narrative: Medical/Surgical/Family History All Active Problems (Updated 08/18/21 @ 17:05 by Ryley White MD) UTI (urinary tract infection) (Acute) Bacteremia (Acute) Bacterial UTI (Acute) Diverticulitis (Acute) Sigmoid diverticulitis (Acute) Diverticulitis of colon with perforation (Acute) 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) Elevated blood pressure reading without diagnosis of hypertension (Chronic) Hematuria (Chronic) Hypertension (Chronic) Acute bronchitis (Chronic) Incomplete bladder emptying (Chronic) BPH NOS w/o ur obs/LUTS (Chronic) Nephrolithiasis (Chronic) Oral soft tissue disease (Chronic) Neoplasm of uncertain behavior of skin (Chronic) Shoulder joint pain (Chronic) Urinary calculi (Chronic) BPH w urinary obs/LUTS (Chronic) Medical History (Updated 08/18/21 @ 17:05 by Ryley White MD) Acute bronchitis BPH NOS w/o ur obs/LUTS BPH w urinary obs/LUTS Elevated blood pressure reading without diagnosis of hypertension Hearing loss (03/27/13) Hematuria Hypertension Incomplete bladder emptying Mediastinal adenopathy asymptomatic Neoplasm of uncertain behavior of skin Nephrolithiasis Non-caseating granuloma Oral soft tissue disease Pulmonary sarcoidosis Shoulder joint pain Urinary calculi Surgical History History of colonoscopy (02/23/11) Family History Father Glaucoma Social History Smoking Status: Never smoker Alcohol Intake Frequency: holiday/special occasion only Exam Narrative Narrative: Narrative: General Limitations: no limitations General appearance: Present alert and in no apparent distress Head Head: Present atraumatic and normocephalic Eye Eye: Present normal appearance and EOMI; Absent scleral icterus or conjunctival injection ENT ENT: Present mucous membranes moist Neck Neck: Present trachea midline Chest Chest: Present symmetric chest wall rise Respiratory Respiratory: Present normal lung sounds bilaterally; Absent respiratory distress, wheezes, stridor, accessory muscle use or prolonged expiratory phase Cardiovascular Cardiovascular: Present regular rate and normal rhythm; Absent systolic murmur or diastolic murmur Adbominal Abdominal: Present soft; Absent distention, tenderness, guarding, rebound, rigidity, organomegaly or mass Extremities Extremities: Present normal inspection; Absent pretibial edema Back Back: Absent CVA tenderness (R), CVA tenderness (L) or spinous process tenderness Neurological Neurological: Present alert and oriented X3; Absent motor sensory deficit Psychiatric Psychiatric: Present normal affect and normal mood Skin Skin: Present warm (WNL) and dry Course Consultations Consultation #1: Dr. Rae, general surgery Time: 12:20 Vital Signs Vital signs: Vital Signs Temperature 98.2 F 08/18/21 07:46 Pulse Rate 74 08/18/21 07:46 Respiratory Rate 20 08/18/21 07:46 Blood Pressure 115/72 08/18/21 07:46 Pulse Oximetry (%) 95 08/18/21 07:46 Temperature 98.3 F 08/18/21 16:00 Pulse Rate 79 08/18/21 16:00 Respiratory Rate 20 08/18/21 16:00 Blood Pressure 129/79 08/18/21 16:00 Pulse Oximetry (%) 94 08/18/21 16:00 [facility] Narrative Medical decision making narrative: 71-year-old male presenting with persistent fever. He has had a significant infectious work-up over the last week and is currently on antibiotics for presumed UTI that should be susceptible. His blood cultures from last night are pending. Vital signs this morning are normal and he is afebrile. Given his history, will obtain CT abdomen to evaluate for recurrent diverticulitis or intra-abdominal infection. CT abdomen shows moderate diverticulitis with a 5cm peridiverticular abscess present. I spoke with Dr. Rae of surgery who is agreeable with admitting the patient. Dose of IV Zosyn ordered. Patient and family updated with plan. Radiology Data Radiology results reviewed: Yes I reviewed the patient's radiology results. Radiology results narrative: Ordering Physician:Ryley White M.D. Date of Service:08/18/21 Procedure(s):CT abdomen pelvis w con CLINICAL INFORMATION: Lower abdominal pain and fever COMPARISON: Abdomen and pelvic CT 04/28/2021 TECHNIQUE: Following enteric contrast, 80 cc of Isovue-370 were injected intravenously, and 60 seconds later, 0.625 mm helical slices were obtained from the mid heart through the subtrochanteric regions. Following reconstruction, 2.5 mm sagittal, coronal and axial reformatted images were processed and reviewed at bone, lung and soft tissue windows. Five minutes later, 0.625 mm helical slices were obtained from the mid heart through the kidneys and viewed at soft tissue windows.The exam was performed using radiation dose optimization techniques including, but not limited to, automated exposure control, adjustment of the mA and/or kV according to patient size and use of iterative reconstruction technique. FINDINGS: The lung bases show moderate subsegmental atelectasis. 8 mm well-defined nodule in the right middle lobe adjacent to the diaphragmatic pleura is unchanged. It should represent a benign subpulmonic lymph node. No effusions. The visualized heart is grossly normal. Abdominal images again show multiple small stones within the gallbladder. The gallbladder and bile ducts are, otherwise, normal. CBD is 5 mm. The liver, both adrenal glands, spleen, pancreas and aorta, including aortic branches, are normal in size, configuration and attenuation without focal lesion. Small nonobstructing calculi within the calyces of both kidneys which are unchanged. These range up to 5 mm in the mid left renal calyx. No obstructing stone or hydronephrosis. There is no adenopathy, free air or free fluid. Pelvic images show 2-3 small stones layering dependently in the posterior urinary bladder ranging up to 9 mm1. Prostate is mildly enlarged, but stable. Moderate diverticulitis has progressed in the mid sigmoid colon.. In this region, there is bowel wall thickening, inflamed diverticula and phlegmon in the perisigmoid fat. A 5 cm peridiverticular abscess is seen in the posterior paracolonic fat between the sigmoid colon the rectum. There appears to be small fistula between the abscess sigmoid colon and the posterior wall of the rectum. The remaining colon,appendix region, small bowel and stomach are normal. Bone windows show right hip prosthesis which is anatomically aligned without loosening or infection. No focal osseous lesion. IMPRESSION: 1. Moderate diverticulitis of the mid sigmoid colon has progressed. There is now a 5 cm peridiverticular abscess posterior perisigmoid fat just anterior to the rectum. 2. Stable cholelithiasis. Gallbladder and bile ducts are, otherwise, normal. 3. Multiple small nonobstructing stones in the calyces of both kidneys ranging up to 5 mm mid calyx in the left kidney-unchanged. 4. Small stones layering dependently within the urinary bladder-unchanged Interpreted and Authenticated by: Sudarshan Portillo 08/18/21 Discharge Plan Patient/Caregiver Discharge Instructions Pt seen by CERTIFIED ORTHOTIST/PEDORTHIST/PA only: No Clinical Impression: Diverticulitis Patient Disposition: Xfer As Inpt ([facility]) Condition: Fair Discharge Date/Time: 08/18/21 13:35
--- NOTE | 2021-08-18 09:50 | Cat Scan Report ---
CLINICAL INFORMATION: Lower abdominal pain and fever COMPARISON: Abdomen and pelvic CT 04/28/2021 TECHNIQUE: Following enteric contrast, 80 cc of Isovue-370 were injected intravenously, and 60 seconds later, 0.625 mm helical slices were obtained from the mid heart through the subtrochanteric regions. Following reconstruction, 2.5 mm sagittal, coronal and axial reformatted images were processed and reviewed at bone, lung and soft tissue windows. Five minutes later, 0.625 mm helical slices were obtained from the mid heart through the kidneys and viewed at soft tissue windows.The exam was performed using radiation dose optimization techniques including, but not limited to, automated exposure control, adjustment of the mA and/or kV according to patient size and use of iterative reconstruction technique. FINDINGS: The lung bases show moderate subsegmental atelectasis. 8 mm well-defined nodule in the right middle lobe adjacent to the diaphragmatic pleura is unchanged. It should represent a benign subpulmonic lymph node. No effusions. The visualized heart is grossly normal. Abdominal images again show multiple small stones within the gallbladder. The gallbladder and bile ducts are, otherwise, normal. CBD is 5 mm. The liver, both adrenal glands, spleen, pancreas and aorta, including aortic branches, are normal in size, configuration and attenuation without focal lesion. Small nonobstructing calculi within the calyces of both kidneys which are unchanged. These range up to 5 mm in the mid left renal calyx. No obstructing stone or hydronephrosis. There is no adenopathy, free air or free fluid. Pelvic images show 2-3 small stones layering dependently in the posterior urinary bladder ranging up to 9 mm1. Prostate is mildly enlarged, but stable. Moderate diverticulitis has progressed in the mid sigmoid colon.. In this region, there is bowel wall thickening, inflamed diverticula and phlegmon in the perisigmoid fat. A 5 cm peridiverticular abscess is seen in the posterior paracolonic fat between the sigmoid colon the rectum. There appears to be small fistula between the abscess sigmoid colon and the posterior wall of the rectum. The remaining colon,appendix region, small bowel and stomach are normal. Bone windows show right hip prosthesis which is anatomically aligned without loosening or infection. No focal osseous lesion. IMPRESSION: 1. Moderate diverticulitis of the mid sigmoid colon has progressed. There is now a 5 cm peridiverticular abscess posterior perisigmoid fat just anterior to the rectum. 2. Stable cholelithiasis. Gallbladder and bile ducts are, otherwise, normal. 3. Multiple small nonobstructing stones in the calyces of both kidneys ranging up to 5 mm mid calyx in the left kidney-unchanged. 4. Small stones layering dependently within the urinary bladder-unchanged Interpreted and Authenticated by: Sudarshan Portillo 08/18/21
[2021-08-18] MEDS ORDERED: PIPERACILLIN SODIUM/TAZOBACTAM 3.375 GM in DEXTROSE 5% IN WATER 50 ML IV ONE (11:10)
[2021-08-18] MEDS ORDERED: ONDANSETRON 4 MG/2 ML VIAL IV PRN (12:56)
--- NOTE | 2021-08-18 13:09 | General Surg History&Physical ---
HPI History of Present Illness Patient information: Note initiated : 08/18/21 at 1:05 pm Service Date, if different from initiated Date: [] Patient: Bernardino Shrestha a 71 y/o M admitted on for Fever, Disoriented, Abd Pain. Chief Complaint: [] Chief complaint: Fevers History of present illness: Mr. Shrestha is a 71 year old M who presented with sigmoid diverticulitis back in April, he was admitted and underwent conservative management with IV antibiotics with good resolution. He had who is current on his colonoscopy therefore when he followed up with Dr. Mcclure patient did not undergo a repeat colonoscopy. He reports over the last week he has had intermittent fevers, suprapubic pain which she thought was secondary to bladder. He does have a significant past history of BPH and he needs to self cath himself. He presented in the emergency room yesterday, vital signs were within normal limits, his fevers persisted and came back in today where CT scan abdomen pelvis is significant for a 5 cm diverticular abscess in between the sigmoid and the colon. I was asked to see and evaluate the patient for possible admission. 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) Elevated blood pressure reading without diagnosis of hypertension (Chronic) Hematuria (Chronic) Hypertension (Chronic) Acute bronchitis (Chronic) Incomplete bladder emptying (Chronic) BPH NOS w/o ur obs/LUTS (Chronic) Nephrolithiasis (Chronic) Oral soft tissue disease (Chronic) Neoplasm of uncertain behavior of skin (Chronic) Shoulder joint pain (Chronic) Urinary calculi (Chronic) BPH w urinary obs/LUTS (Chronic) Medical History Acute bronchitis BPH NOS w/o ur obs/LUTS BPH w urinary obs/LUTS Elevated blood pressure reading without diagnosis of hypertension Hearing loss (03/27/13) Hematuria Hypertension Incomplete bladder emptying Mediastinal adenopathy asymptomatic Neoplasm of uncertain behavior of skin Nephrolithiasis Non-caseating granuloma Oral soft tissue disease Pulmonary sarcoidosis Shoulder joint pain Urinary calculi Surgical History History of colonoscopy (02/23/11) Family History Father Glaucoma Social History marital status: occupation: [employer] alcohol intake frequency: holiday/special occasion only MEDS/ALLERGIES Home Medications and Allergies Home Medications Medication Instructions Recorded Confirmed Type allopurinol 300 mg tablet 300 mg PO QDAY 09/24/16 05/21/21 History indapamide 2.5 mg tablet 2.5 mg PO QAM 09/24/16 05/21/21 History potassium citrate 10 mEq (1,080 10 meq PO QDAY tab 09/24/16 05/21/21 History mg) tablet,extended release tamsulosin 0.4 mg capsule (Flomax) 0.8 mg PO QDAY cap 09/24/16 05/21/21 History aspirin 81 mg tablet,delayed 81 mg PO QDAY 04/04/18 05/21/21 History release (Adult Low Dose Aspirin) bethanechol chloride 10 mg tablet tab PO 04/29/21 05/21/21 History ciprofloxacin HCl 500 mg tablet 500 mg PO BID #60 tab 05/05/21 05/21/21 Rx (Cipro) metronidazole 500 mg tablet 500 mg PO TID #90 tab 05/05/21 05/21/21 Rx potassium chloride PO QDAY 05/21/21 05/21/21 History oxybutynin chloride 5 mg tablet 5 mg PO BID PRN #20 tab 08/12/21 Rx sulfamethoxazole 800 1 tab PO Q12H 7 Days #14 tab 08/12/21 Rx mg-trimethoprim 160 mg tablet (Bactrim DS) Allergies Allergy/AdvReac Type Severity Reaction Status Date / Time No Known Drug Allergies Allergy Verified 08/18/21 07:49 Physical Examination Vital Signs Vital signs: Temp Pulse Resp BP Pulse Ox 98.4 F 62 20 113/80 93 08/18/21 09:32 08/18/21 12:40 08/18/21 07:46 08/18/21 12:01 08/18/21 12:40 General physical appearance General physical exam: well developed, well nourished and no distress Eyes Eye exam: PERRL and normal ocular movement ENT ENT exam: normal pinna, normal nares, normal mucosa, no hearing loss and no congestion Head Head exam IM: Present atraumatic and normocephalic Neck Neck exam: no masses, no bruits, trachea midline, no lymphadenopathy and no venous distension Cardiovascular Cardiovascular exam IM: Present normal rate and rhythm Respiratory Respiratory exam: normal expansion, normal respiratory effort, clear to percussion and clear to auscultation Abdomen Abdomen: Present soft, tender and bowel sounds; Absent wound, guarding or rigid Hernia: Present none Genitourinary Genitourinary (Male): Present normal penis with no external lesions Rectum Rectum: Present normal sphincter tone, no hemorrhoids, no tenderness, no masses and no bleeding Integumentary Integumentary: Present no rash, no growths and no abnormal pigmentation Neurologic Neurologic: Present normal coordination and normal sensation Musculoskeletal Musculoskeletal: Present normal gait and normal posture Psychiatric Psychiatric: Present oriented to time, oriented to person, oriented to place, speech is normal and memory intact Results Labs Labs: All other labs normal. A/P Assessment and plan (1) Sigmoid diverticulitis: Plan: This is a pleasant 71-year-old gentleman who presents with a 5 cm abscess from perforated sigmoid diverticulitis. Patient is acutely not ill, he has been having fevers but no nausea, emesis and mild suprapubic abdominal pain. Plan: N.p.o., IV antibiotics. I will follow with the size of the abscess to determine whether or not surgical drainage is needed. Status: Acute Time Spent With Patient Time: Total time spent is greater than 50% in coordination of care (as documented) at patient's floor/unit and/or counseling patient:
[2021-08-18] MEDS: CIPROFLOXACIN 400 MG/200 ML BAG IV SCH ×2 (14:07→22:41)
[2021-08-18] MEDS: DEXTROSE 5%-1/2NS 1,000 ML IV SCH ×2 (14:07→21:49)
[2021-08-18] MEDS: 0.9 % SODIUM CHLORIDE 10 ML SYRINGE IV SCH ×2 (14:08→21:49)
[2021-08-18] MEDS ORDERED: IBUPROFEN 600 MG TABLET PO PRN (15:34)
[2021-08-18] MEDS: metroNIDAZOLE 500 MG/100 ML BAG IV SCH ×2 (16:04→21:48)
[2021-08-19] MEDS: DEXTROSE 5%-1/2NS 1,000 ML IV SCH ×2 (03:59→16:59)
[2021-08-19] MEDS: 0.9 % SODIUM CHLORIDE 10 ML SYRINGE IV SCH ×3 (05:14→21:34)
[2021-08-19] MEDS: metroNIDAZOLE 500 MG/100 ML BAG IV SCH ×3 (05:14→23:39)
[2021-08-19 06:35] LABS: Basophils # (Auto) 0.02 K/mcL (0.00-0.30); Basophils % (Auto) 0.5 % (0.0-2.0); Eosinophils # (Auto) 0 K/mcL (0.00-0.70); Eosinophils % (Auto) 0 % (0.0-7.0); Hematocrit 43.3 % (40.1-51.0); Hemoglobin 15.1 g/dL (13.7-17.5); Lymphocytes # (Auto) 0.54 K/mcL (1.50-4.80); Lymphocytes % (Auto) 13.4 % (15.5-49.0); Mean Cell Volume 103.6 fL (80.0-100.0); Mean Corpuscular HGB Conc 34.9 g/dL (31.0-36.0); Monocytes # (Auto) 0.54 K/mcL (0.10-0.90); Monocytes % (Auto) 13.4 % (1.0-12.0); Neutrophils % (Auto) 72.7 % (38.0-78.0); Platelet Count 196 K/mcL (140-440); RBC 4.18 M/mcL (4.63-6.08); Red Cell Distribution Width 12.5 % (11.5-14.5)
[2021-08-19 06:54] LABS: Blood Urea Nitrogen 12 mg/dL (8-23); Calcium 8.5 mg/dL (8.6-10.4); Carbon Dioxide 25 mmol/L (22-30); Chloride 97 mmol/L (96-108); Glomerular Filtration Rate 84; Glucose 128 mg/dL (70-105)
--- NOTE | 2021-08-19 08:27 | General Surgery Progress Note ---
SUBJECTIVE Subjective Patient information: Note initiated : 08/19/21 at 8:26 am Service Date, if different from initiated Date: [] Patient: Bernardino Shrestha 71 y/o M admitted on 08/18/21 for Fever, Disoriented, Abd Pain. Chief Complaint: [] Interval history: Patient feels much better today, decreased abdominal pain. He has no nausea vomiting fevers or chills. Constitutional Vitals: Vital Signs Temp Pulse Resp BP Pulse Ox 97.9 F 76 20 114/80 95 08/19/21 07:13 08/19/21 07:13 08/19/21 07:13 08/19/21 07:13 08/19/21 07:13 Period Temp Pulse Resp BP Sys/Jones Pulse Ox Last 24 Hr 97.9 F-98.8 F 62-79 16-20 88-129/60-80 91-95 Intake and Output 08/18/21 08/19/21 08/19/21 21:59 05:59 13:59 Intake Total 300 1400 100 Output Total 1150 200 Balance -850 1200 100 Weight 191 lb Intake & Output: Intake & Output 08/18/21 08/19/21 08/19/21 21:59 05:59 13:59 Intake Total 300 1400 100 Output Total 1150 200 Balance -850 1200 100 Weight 191 lb Intake: IV 300 1300 100 Dextrose 5%-1/2Ns IV Solution 1 1000 ,000 ml @ 125 mls/hr IV .Q8H [facility] Rx#:[id number] Oral 100 Output: Urine Catheter Amount 1150 Void Amount 200 Other: Meal NPO Urine Appearance Clear Clear Urine Color Dark Yellow Bright Yellow General appearance: cooperative and no acute distress GI/Abdominal GI/Abdominal exam: Present soft and guarding; Absent tenderness A/P Assessment and plan (1) Diverticulitis: Status: Acute Plan Perforated sigmoid diverticulitis. Patient feels much better today. Clear liquid diet as tolerated. Time Spent With Patient Time: Total time spent is greater than 50% in coordination of care (as documented) at patient's floor/unit and/or counseling patient:
[2021-08-19] MEDS: CIPROFLOXACIN 400 MG/200 ML BAG IV SCH ×2 (08:51→22:13)
[2021-08-19] MEDS ORDERED: HYDROmorphone 0.5 MG/0.5 ML SYRINGE IV PRN (16:14)
[2021-08-19] MEDS ORDERED: ACETAMINOPHEN 325 MG TABLET PO PRN (16:14)
[2021-08-20] MEDS: metroNIDAZOLE 500 MG/100 ML BAG IV SCH ×3 (05:55→22:07)
[2021-08-20] MEDS: DEXTROSE 5%-1/2NS 1,000 ML IV SCH ×2 (05:55→07:24)
[2021-08-20 06:18] LABS: Basophils # (Auto) 0.02 K/mcL (0.00-0.30); Basophils % (Auto) 0.4 % (0.0-2.0); Eosinophils # (Auto) 0 K/mcL (0.00-0.70); Eosinophils % (Auto) 0 % (0.0-7.0); Hematocrit 44.5 % (40.1-51.0); Hemoglobin 15.6 g/dL (13.7-17.5); Lymphocytes # (Auto) 0.88 K/mcL (1.50-4.80); Lymphocytes % (Auto) 16.3 % (15.5-49.0); Mean Cell Volume 103.2 fL (80.0-100.0); Mean Corpuscular HGB Conc 35.1 g/dL (31.0-36.0); Monocytes % (Auto) 14.8 % (1.0-12.0); Neutrophils % (Auto) 68.5 % (38.0-78.0); Platelet Count 204 K/mcL (140-440); RBC 4.31 M/mcL (4.63-6.08); Red Cell Distribution Width 12.1 % (11.5-14.5)
[2021-08-20 06:44] LABS: Blood Urea Nitrogen 9 mg/dL (8-23); Calcium 8.6 mg/dL (8.6-10.4); Carbon Dioxide 22 mmol/L (22-30); Chloride 99 mmol/L (96-108); Glomerular Filtration Rate 89; Glucose 127 mg/dL (70-105)
[2021-08-20] MEDS: 0.9 % SODIUM CHLORIDE 10 ML SYRINGE IV SCH ×3 (06:56→21:12)
[2021-08-20 07:37] LABS: WBC 5.4 K/mcL (4.5-11.0)
[2021-08-20] MEDS: CIPROFLOXACIN 400 MG/200 ML BAG IV SCH ×2 (09:04→21:11)
[2021-08-20] MEDS ORDERED: PNEUMOCOCCAL 23-VAL P-SAC VAC 0.5 ML SYRINGE IM ONE (10:00)
[2021-08-21] MEDS: 0.9 % SODIUM CHLORIDE 10 ML SYRINGE IV SCH ×3 (05:14→21:24)
[2021-08-21] MEDS: metroNIDAZOLE 500 MG/100 ML BAG IV SCH (05:15)
[2021-08-21] MEDS: CIPROFLOXACIN 400 MG/200 ML BAG IV SCH (08:58)
[2021-08-21] MEDS: metroNIDAZOLE 500 MG TABLET PO SCH ×2 (13:39→21:24)
--- NOTE | 2021-08-21 13:56 | General Surgery Progress Note ---
SUBJECTIVE Subjective Patient information: Note initiated : 08/21/21 at 1:54 pm Service Date, if different from initiated Date: [08/20/2021] Patient: Bernardino Shrestha 71 y/o M admitted on 08/18/21 for Fever, Disoriented, Abd Pain. Chief Complaint: [] Interval history: Patient tolerated clear liquid diet, did have some increased crampy abdominal pain but continued to have flatus. No fevers chills nausea or vomiting. White blood cell count still within normal limits. Constitutional Vitals: Vital Signs Temp Pulse Resp BP Pulse Ox 97.8 F 70 16 104/66 94 08/21/21 12:00 08/21/21 12:00 08/21/21 12:00 08/21/21 12:00 08/21/21 12:00 Period Temp Pulse Resp BP Sys/Jones Pulse Ox Last 24 Hr 97.3 F-98.5 F 60-95 14-20 96-119/63-80 91-95 Intake and Output 08/20/21 08/21/21 08/21/21 21:59 05:59 13:59 Intake Total 119 950 1116 Output Total 1400 1450 900 Balance -1300 -550 300 Weight 189 lb 14.4 oz Intake & Output: Intake & Output 08/20/21 08/21/21 08/21/21 21:59 05:59 13:59 Intake Total 058 615 4266 Output Total 1400 1450 900 Balance -1300 -550 300 Weight 189 lb 14.4 oz Intake: IV 100 300 300 Oral 600 900 Output: Urine Catheter Amount 850 1200 Void Amount 550 250 900 Other: Meal Lunch Percent of Meal Consumed 100% Urine Appearance Clear Clear Urine Color Bright Yellow Bright Yellow Urine Odor Normal Stool Size Small Stool Color Brown Blood Tinged Yellow Stool Consistency Liquid Loose # Bowel Movements 1 1 General appearance: cooperative and no acute distress GI/Abdominal GI/Abdominal exam: Present soft and tenderness (Mild suprapubic tenderness); Absent distended or guarding A/P Narrative Plan of Treatment: This pleasant 71-year-old gentleman who presents with perforated diverticulitis, patient is having some signs of an ileus. Continue with clear liquid diet. Continue with IV antibiotics. Time Spent With Patient Time: Total time spent is greater than 50% in coordination of care (as documented) at patient's floor/unit and/or counseling patient:
--- NOTE | 2021-08-21 16:12 | General Surgery Progress Note ---
SUBJECTIVE Subjective Patient information: Note initiated : 08/21/21 at 1:56 pm Service Date, if different from initiated Date: [] Patient: Bernardino Shrestha 71 y/o M admitted on 08/18/21 for Fever, Disoriented, Abd Pain. Chief Complaint: [] Interval history: Hospital day #3 admitted with perforated sigmoid diverticulitis. Patient feels much better today, had multiple bowel movements, less cramping abdominal pain. Constitutional Vitals: Vital Signs Temp Pulse Resp BP Pulse Ox 97.8 F 70 16 104/66 94 08/21/21 12:00 08/21/21 12:00 08/21/21 12:00 08/21/21 12:00 08/21/21 12:00 Period Temp Pulse Resp BP Sys/Jones Pulse Ox Last 24 Hr 97.3 F-98.5 F 60-95 14-20 96-119/63-80 91-95 Intake and Output 08/20/21 08/21/21 08/21/21 21:59 05:59 13:59 Intake Total 945 514 9799 Output Total 1400 1450 900 Balance -1300 -550 300 Weight 189 lb 14.4 oz Intake & Output: Intake & Output 08/20/21 08/21/21 08/21/21 21:59 05:59 13:59 Intake Total 167 038 2533 Output Total 1400 1450 900 Balance -1300 -550 300 Weight 189 lb 14.4 oz Intake: IV 100 300 300 Oral 600 900 Output: Urine Catheter Amount 850 1200 Void Amount 550 250 900 Other: Meal Lunch Percent of Meal Consumed 100% Urine Appearance Clear Clear Urine Color Bright Yellow Bright Yellow Urine Odor Normal Stool Size Small Stool Color Brown Blood Tinged Yellow Stool Consistency Liquid Loose # Bowel Movements 1 1 General appearance: cooperative and no acute distress GI/Abdominal GI/Abdominal exam: Present soft and tenderness; Absent distended A/P Narrative Plan of Treatment: Doing much better with perforated sigmoid diverticulitis. Changed to oral antibiotics, advance diet as tolerated. Anticipate home tomorrow. Time Spent With Patient Time: Total time spent is greater than 50% in coordination of care (as documented) at patient's floor/unit and/or counseling patient:
[2021-08-21] MEDS: CIPROFLOXACIN 500 MG TABLET PO SCH (21:24)
[2021-08-22] MEDS: 0.9 % SODIUM CHLORIDE 10 ML SYRINGE IV SCH (05:39)
[2021-08-22] MEDS: metroNIDAZOLE 500 MG TABLET PO SCH (06:39)
--- NOTE | 2021-08-22 07:55 | Discharge Summary ---
Discharge Provider Provider IMPORTANT FOLLOW-UP INFORMATION FOR PCP: Patient information: Note initiated : 08/22/21 at 7:54 am Service Date, if different from initiated Date: [] Patient: Bernardino Shrestha 71 y/o M admitted on 08/18/21 for Fever, Disoriented, Abd Pain. Chief Complaint: [] Date of admission: 08/18/21 13:35 Discharge date: 08/22/21 Primary care physician: Purnima Lopes Consults: 08/18/21 Consult to Physician [CONS] Stat Comment: Consulting Provider: Art Rae Reason For Exam: Physician to Consult COURSE Hospital Course Hospital course: Patient admitted for perforated sigmoid diverticulitis, patient was made n.p.o. placed on IV antibiotics. He is slowly progressed and was changed to p.o. antibiotics. He is doing well. He will be discharged home, follow-up with me in 1 week, at that time we will order a CT scan abdomen pelvis and schedule for follow-up colonoscopy. Discharge diagnosis: Status post perforated sigmoid diverticulitis Time Spent with Patient Time attestation: Total time spent providing and/or coordinating discharge services: Time spent: Greater than 30 minutes Physical Examination Vital Signs Vital signs: Temp Pulse Resp BP Pulse Ox 97.8 F 78 20 105/65 91 08/22/21 07:04 08/22/21 05:36 08/22/21 07:04 08/22/21 07:04 08/22/21 07:04 Discharge Plan Patient/Caregiver Discharge Instructions Activity: increase activity as tolerated Diet: Regular Diet Activity Restrictions/Additional Instructions: Follow-up with me in 1 to 2 weeks Prescriptions: New acetaminophen [Tylenol] 325 mg Tablet 650 mg PO Q6HP PRN (Reason: Per Pain Protocol/Fever > 101) Qty: 90 0RF ciprofloxacin HCl 500 mg Tablet 500 mg PO BID Qty: 14 0RF metronidazole 500 mg Tablet 500 mg PO Q8 Qty: 21 0RF ibuprofen 600 mg Tablet 600 mg PO TIDP PRN (Reason: Pain/Fever > 101) Qty: 90 0RF Continued allopurinol 300 mg tablet 300 mg PO QDAY 0RF tamsulosin [Flomax] 0.4 mg capsule,extended release 24hr 0.8 mg PO QDAY 0RF indapamide 2.5 mg tablet 2.5 mg PO QAM 0RF potassium citrate 10 mEq (1,080 mg) tablet extended release 10 meq PO QDAY 0RF potassium chloride 10 meq PO QDAY 0RF oxybutynin chloride 5 mg tablet 5 mg PO BID PRN (Reason: bladder spasms) Qty: 20 0RF Follow Up Plan Follow up with: Purnima Lopes MD [Primary Care Provider] - Patient Disposition: Home, Self-Care Hospital Course: Patient mid to the hospital with perforated sigmoid diverticulitis. Patient was placed on IV antibiotics, slowly got better and was converted to p.o. antibiotics. He is now pain-free, has had return of bowel function and is now clear for discharge. Plan of Treatment: Doing much better with perforated sigmoid diverticulitis. Changed to oral antibiotics, advance diet as tolerated. Anticipate home tomorrow. Prognosis: Fair Discharge Orders: Discharge Order (Routine); Ordered 08/22/21 Ordered By: Art Rae Pending Pending Pending: Resuscitation Status Resuscitate (Full Code) Diet Regular Diet Start Wilma August 21 1142 Ciprofloxacin (Ciprofloxacin 500 Mg Tablet) 500 mg PO BID ERIK; Protocol Last Admin: 08/21/21 21:24 Dose: 500 mg Documented by: ZAIN Ibuprofen (Ibuprofen 600 Mg Tablet) 600 mg PO TIDP PRN; Protocol PRN Reason: PAIN/FEVER > 101 Last Admin: 08/18/21 16:04 Dose: 600 mg Documented by: SHADY Metronidazole (Metronidazole 500 Mg Tablet) 500 mg PO Q8 [facility]; Protocol Last Admin: 08/22/21 06:39 Dose: 500 mg Documented by: Admin: 08/21/21 21:24 Dose: 500 mg Documented by: Admin: 08/21/21 13:39 Dose: 500 mg Documented by: HANS Sodium Chloride (0.9 % Sodium Chloride 10 Ml Syringe) 10 ml IV Q8 ERIK Last Admin: 08/22/21 05:39 Dose: 10 ml Documented by: Admin: 08/21/21 21:24 Dose: 10 ml Documented by: Admin: 08/21/21 14:04 Dose: 10 ml Documented by: Admin: 08/21/21 05:14 Dose: 10 ml Documented by: Admin: 08/20/21 21:12 Dose: 10 ml Documented by: Admin: 08/20/21 14:33 Dose: 10 ml Documented by: Admin: 08/20/21 06:56 Dose: Not Given Documented by: Admin: 08/19/21 21:34 Dose: Not Given Documented by: Admin: 08/19/21 13:57 Dose: 10 ml Documented by: Admin: 08/19/21 05:14 Dose: 10 ml Documented by: Admin: 08/18/21 21:49 Dose: 10 ml Documented by: Admin: 08/18/21 14:08 Dose: 10 ml Documented by: SHADY Shift Summary 08/22/21 04:11 Shift Summary by Meme Alfonso Primary Diagnosis: Fever, disoriented, abd pain. Registration Status: 08/18 - M/S IP Pertinent Medical Hx/Issue(s): Hx sigmoid diverticulitis Apr, 2021. BPH - self caths. HTN, acute bronchitis, Vital Signs with Trends: VSS on RA Neuro/Mental Status: A&OX4 Ambulation status : Independent in rm. Diet : Regular PRN MEDS : none Lines/Tubes: SL R hand Lab/Rad results: Void / BM: Pt self caths every 6hrs. AUO. BM X1 this shift. Recommendations/questions for MD: Expected date of discharge: Possibly today, 08/22 Discharge Plan (needs, disposition, etc): To return home when medically cleared. Initialized on 08/22/21 04:11 - END OF NOTE
[2021-08-22] MEDS: CIPROFLOXACIN 500 MG TABLET PO SCH (08:11)
== END 2021-08-22 10:55 | disposition home or self-care (01) | DRG 392 ==
LOC: ED 07:46 → MEDSUR 13:35
PROVIDERS: ADMIT Surgery; ATTEND Surgery

== ENCOUNTER 2023-08-08 16:58 | Inpatient (IN) ==
[2023-08-08] MEDS: 0.9 % SODIUM CHLORIDE 1,000 ML IV ONE (17:25)
[2023-08-08] MEDS: ACETAMINOPHEN 500 MG TABLET PO ONE (17:26)
[2023-08-08] MEDS: ACETAMINOPHEN 1,000 MG/100 ML BAG IV ONE (17:33)
[2023-08-08] MEDS: SODIUM CHLORIDE IV ONE (17:40)
[2023-08-08] MEDS: cefTRIAXone 2 GM in DEXTROSE 5% IN WATER 50 ML IV ONE (17:50)
[2023-08-08 18:06] LABS: Basophils # (Auto) 0.02 K/mcL (0.00-0.30); Basophils % (Auto) 0.1 % (0.0-2.0); Eosinophils # (Auto) 0.07 K/mcL (0.00-0.70); Eosinophils % (Auto) 0.5 % (0.0-7.0); Hematocrit 42.1 % (40.1-51.0); Hemoglobin 14.8 g/dL (13.7-17.5); Lymphocytes # (Auto) 0.82 K/mcL (1.50-4.80); Lymphocytes % (Auto) 5.9 % (15.5-49.0); Mean Corpuscular HGB Conc 35.2 g/dL (31.0-36.0); Mean Platelet Volume 10.2 fL (8.8-12.5); Monocytes # (Auto) 0.93 K/mcL (0.10-0.90); Monocytes % (Auto) 6.7 % (1.0-12.0); Neutrophils % (Auto) 86.5 % (38.0-78.0); Platelet Count 225 K/mcL (140-440); RBC 4.05 M/mcL (4.63-6.08); Red Cell Distribution Width 12.4 % (11.5-14.5); WBC 13.8 K/mcL (4.5-11.0)
[2023-08-08 18:25] LABS: ALT/SGPT 37 U/L (<40); AST/SGOT 32 U/L (<40); Alkaline Phosphatase 125 U/L (39-117); Bilirubin,Total 0.8 mg/dL (0.1-1.0); Blood Urea Nitrogen 16 mg/dL (8-23); Calcium 9.2 mg/dL (8.6-10.4); Carbon Dioxide 21 mmol/L (22-30); Chloride 104 mmol/L (96-108); Globulin 3.9 gm/dL (2.2-3.7); Glomerular Filtration Rate 83; Glucose 136 mg/dL (70-105)
[2023-08-08 18:29] LABS: Appearance,Urine Cloudy (Clear); Bacteria,Urine Many /hpf (0); Bilirubin,Urine Negative (Negative); Color,Urine Yellow; Culture Indicated,Urine Yes; Glucose,Urine (UA) Negative (Negative); Ketones,Urine Negative (Negative); Leukocyte Esterase,Urine Moderate /uL (Negative); Nitrate,Urine Positive (Negative); PH,Urine 5.5 (5.0-9.0); Protein,Urine Trace mg/dL (Negative); Specific Gravity,Urine 1.025 (1.000-1.035); Urine Blood Trace-intact ery/mcL (Negative); Urine RBC 0 /hpf (0-3); Urine Squamous Epithelial Cell 0 /hpf (0-4); Urine WBC > 182 /hpf (0-4); Urobilinogen,Urine Normal
[2023-08-08 18:32] LABS: INR 1.1 (0.9-1.1); Prothrombin Time 14.8 sec (11.9-14.5)
[2023-08-08] MEDS: KETOROLAC 30 MG/ML VIAL IV ONE (19:28)
[2023-08-08] MEDS ORDERED: ONDANSETRON 4 MG/2 ML VIAL IV PRN (21:26)
[2023-08-08] MEDS: ACETAMINOPHEN 1,000 MG/100 ML BAG IV SCH (21:36)
[2023-08-08] MEDS: PIPERACILLIN SODIUM/TAZOBACTAM 3.375 GM in DEXTROSE 5% IN WATER 50 ML IV ONE (21:50)
[2023-08-08] MEDS: 0.9 % SODIUM CHLORIDE 1,000 ML IV SCH (22:00)
[2023-08-08] MEDS: PIPERACILLIN SODIUM/TAZOBACTAM 3.375 GM in DEXTROSE 5% IN WATER 100 ML IV SCH (22:33)
[2023-08-09 06:31] LABS: Basophils # (Auto) 0.03 K/mcL (0.00-0.30); Basophils % (Auto) 0.2 % (0.0-2.0); Eosinophils # (Auto) 0.11 K/mcL (0.00-0.70); Eosinophils % (Auto) 0.9 % (0.0-7.0); Hematocrit 36.7 % (40.1-51.0); Lymphocytes # (Auto) 0.63 K/mcL (1.50-4.80); Lymphocytes % (Auto) 4.9 % (15.5-49.0); Mean Cell Volume 104.6 fL (80.0-100.0); Mean Corpuscular HGB Conc 35.4 g/dL (31.0-36.0); Monocytes # (Auto) 0.83 K/mcL (0.10-0.90); Monocytes % (Auto) 6.5 % (1.0-12.0); Neutrophils % (Auto) 87.3 % (38.0-78.0); Platelet Count 158 K/mcL (140-440); RBC 3.51 M/mcL (4.63-6.08); Red Cell Distribution Width 12.6 % (11.5-14.5); WBC 12.9 K/mcL (4.5-11.0)
[2023-08-09 06:42] LABS: INR 1.2 (0.9-1.1); Prothrombin Time 15.7 sec (11.9-14.5)
[2023-08-09 06:48] LABS: ALT/SGPT 24 U/L (<40); AST/SGOT 20 U/L (<40); Albumin 3.3 gm/dL (3.2-5.2); Alkaline Phosphatase 99 U/L (39-117); Bilirubin,Direct 0.3 mg/dL (<0.3); Bilirubin,Total 0.9 mg/dL (0.1-1.0); Blood Urea Nitrogen 13 mg/dL (8-23); Calcium 8.2 mg/dL (8.6-10.4); Carbon Dioxide 19 mmol/L (22-30); Chloride 108 mmol/L (96-108); Globulin 3.2 gm/dL (2.2-3.7); Glomerular Filtration Rate 92; Glucose 130 mg/dL (70-105); Lactate Dehydrogenase 128 U/L (135-225); Phosphorous 1.8 mg/dL (2.5-4.5); Triglycerides 77 mg/dL (<150); Uric Acid 3.2 mg/dL (2.5-8.0)
[2023-08-09] MEDS: PANTOPRAZOLE 40 MG VIAL IV SCH (07:05)
[2023-08-09] MEDS: fentaNYL 100 MCG/2 ML VIAL IV PRN (12:47)
[2023-08-11 06:24] LABS: Basophils # (Auto) 0.03 K/mcL (0.00-0.30); Basophils % (Auto) 0.5 % (0.0-2.0); Eosinophils # (Auto) 0.26 K/mcL (0.00-0.70); Eosinophils % (Auto) 4.3 % (0.0-7.0); Hematocrit 37.9 % (40.1-51.0); Hemoglobin 13.2 g/dL (13.7-17.5); Lymphocytes # (Auto) 0.69 K/mcL (1.50-4.80); Lymphocytes % (Auto) 11.5 % (15.5-49.0); Mean Cell Volume 105.6 fL (80.0-100.0); Mean Corpuscular HGB Conc 34.8 g/dL (31.0-36.0); Mean Platelet Volume 10.1 fL (8.8-12.5); Monocytes # (Auto) 0.77 K/mcL (0.10-0.90); Monocytes % (Auto) 12.9 % (1.0-12.0); Neutrophils % (Auto) 70.6 % (38.0-78.0); Platelet Count 188 K/mcL (140-440); RBC 3.59 M/mcL (4.63-6.08); Red Cell Distribution Width 12.7 % (11.5-14.5)
[2023-08-11 06:49] LABS: ALT/SGPT 14 U/L (<40); AST/SGOT 21 U/L (<40); Albumin 3.5 gm/dL (3.2-5.2); Alkaline Phosphatase 104 U/L (39-117); Bilirubin,Direct 0.2 mg/dL (<0.3); Bilirubin,Total 0.8 mg/dL (0.1-1.0); Blood Urea Nitrogen 7 mg/dL (8-23); Calcium 8.7 mg/dL (8.6-10.4); Carbon Dioxide 22 mmol/L (22-30); Chloride 105 mmol/L (96-108); Globulin 3.6 gm/dL (2.2-3.7); Glomerular Filtration Rate 83; Glucose 90 mg/dL (70-105); Lactate Dehydrogenase 195 U/L (135-225); Phosphorous 2.1 mg/dL (2.5-4.5); Triglycerides 125 mg/dL (<150)
[2023-08-11] MEDS: POTASSIUM PHOSPHATE 40 MEQ in DEXTROSE 5% IN WATER 500 ML IV SCH (16:07)
[2023-08-12 06:29] LABS: Basophils # (Auto) 0.03 K/mcL (0.00-0.30); Basophils % (Auto) 0.6 % (0.0-2.0); Hematocrit 39.6 % (40.1-51.0); Hemoglobin 13.8 g/dL (13.7-17.5); Lymphocytes # (Auto) 0.78 K/mcL (1.50-4.80); Lymphocytes % (Auto) 15.5 % (15.5-49.0); Mean Cell Volume 103.9 fL (80.0-100.0); Mean Corpuscular HGB Conc 34.8 g/dL (31.0-36.0); Mean Platelet Volume 10.1 fL (8.8-12.5); Monocytes # (Auto) 0.69 K/mcL (0.10-0.90); Monocytes % (Auto) 13.7 % (1.0-12.0); Neutrophils % (Auto) 66.2 % (38.0-78.0); Platelet Count 219 K/mcL (140-440); RBC 3.81 M/mcL (4.63-6.08); Red Cell Distribution Width 12.8 % (11.5-14.5)
[2023-08-12 06:43] LABS: ALT/SGPT 16 U/L (<40); AST/SGOT 26 U/L (<40); Albumin 3.6 gm/dL (3.2-5.2); Alkaline Phosphatase 105 U/L (39-117); Bilirubin,Direct < 0.2 mg/dL (0-0.3); Bilirubin,Total 0.7 mg/dL (0.1-1.0); Blood Urea Nitrogen 6 mg/dL (8-23); Calcium 8.9 mg/dL (8.6-10.4); Carbon Dioxide 20 mmol/L (22-30); Chloride 106 mmol/L (96-108); Globulin 3.6 gm/dL (2.2-3.7); Glomerular Filtration Rate 87; Glucose 108 mg/dL (70-105); Lactate Dehydrogenase 154 U/L (135-225); Phosphorous 3.3 mg/dL (2.5-4.5); Triglycerides 161 mg/dL (<150); Uric Acid 2.9 mg/dL (2.5-8.0)
[2023-08-12] MEDS ORDERED: IOPAMIDOL 100 ML BOTTLE IV ONE (08:56)
== END 2023-08-12 14:44 | disposition home or self-care (01) | DRG 392 ==
LOC: ED 16:58 → MEDSUR 22:35
PROVIDERS: ADMIT Family Medicine Adult Medicine; ATTEND Family Medicine Adult Medicine